=== PATIENT | male | born 1965 | race Two or more races ===

== ENCOUNTER 2021-06-15 15:35 | Emergency (ER) | payer MEDICAID, SELFPAY ==
--- NOTE | ~2021-06-15 | CT_ITS ---
EXAMINATION: CT ANGIOGRAM OF THE CHEST WITH CONTRAST (CT PULMONARY ANGIOGRAM FOR PE) CLINICAL INFORMATION: Elevated D-dimer. RIGHT side chest pain. Evaluate for pulmonary emphysema or pneumonia. COMPARISON: CXR from 06/15/2021. TECHNIQUE: Prior to contrast administration, noncontrast localization images were obtained. Subsequently, multidetector volumetric imaging was performed from the thoracic inlet to below the diaphragms following the administration of 65 mL Omnipaque 350 intravenous contrast. No contrast reaction reported. Sagittal, coronal, and MIP oblique sagittal reformatted images were obtained on the CT workstation, uploaded to PACS, and reviewed. This CT examination was performed using dose optimization techniques as appropriate, variously including the following: *Automated exposure control *Adjustment of mA and/or kV according to patient size (this includes techniques or standardized protocols for targeted exams where dose is matched to indication/reason for exam; i.e. extremities or head) *Use of iterative reconstruction technique DLP: Total exam dose-length product 312 mGy-cm FINDINGS: LUNGS AND PLEURA: Trachea and central airways are widely patent and normal in caliber. Patchy groundglass opacities are present in both lungs. The disease is peripheral in distribution and worst in the lower lobes. There are intermixed small airspace opacities, nodular/reticulonodular opacities, and perifissural nodular opacities in both lungs. The findings could represent either infectious or noninfectious pneumonitis, with differential including sequela of Covid 19 infection. Therefore, recommend correlation with results of Covid testing. There is mild dilatation of several bronchi in lower lobes and inferior lingula. No mucous plugging of bronchi. QUALITY OF STUDY/CONTRAST BOLUS: Satisfactory. CARDIOVASCULAR: The pulmonary arteries are normal in caliber. No embolic filling defects in the main, lobar or segmental vessels. The heart size is normal. No pericardial effusion. Thoracic aorta is normal in caliber. There is no aortic aneurysm or dissection. MEDIASTINUM/LOWER NECK: The esophagus and thyroid gland are unremarkable. No mediastinal mass. No pneumomediastinum. LYMPHATICS: No axillary or internal mammary lymphadenopathy. No pathologic sized mediastinal lymph nodes. Mildly enlarged hilar lymph nodes are detected. The right and left hilar lymph nodes measure up to approximately 1.2 cm and 1 cm short axis diameter. UPPER ABDOMEN: No contrast reflux into the inferior vena cava. No acute findings in the visualized portion of the upper abdomen. OSSEOUS STRUCTURES: Mild spondylosis of the thoracic spine. No suspicious bone lesions. CT/CT angio chest PE protocol IMPRESSION: * No evidence of pulmonary embolism. * There are groundglass and reticular/nodular opacities of both lungs. The abnormalities could be caused by an infectious or noninfectious inflammatory process. Since differential diagnosis includes viral pneumonia, recommend correlation with results of Covid testing. Mild bilateral hilar lymphadenopathy is present. * No pleural effusion or pneumothorax.
--- NOTE | ~2021-06-15 | XR_ITS ---
EXAMINATION: XR CHEST CLINICAL INFORMATION: Right-sided chest pain COMPARISON: None TECHNIQUE: Frontal view of the chest was obtained. FINDINGS: Diffuse coarse interstitial opacity. No focal consolidation, pleural effusion, or pneumothorax. Normal heart size. Regional skeleton intact. XR/XR chest 1V IMPRESSION: Diffuse coarse interstitial opacity is seen. No prior studies available to assess acuity. This can be seen acutely with bronchiolitis or interstitial pneumonitis, chronically with chronic bronchitis or reactive airways disease.
[2021-06-15 16:47] VITALS: BP 134/85; PULSE 72; RESP 18; TEMP 36.7; O2SAT 96; BMI 26.6
--- NOTE | 2021-06-15 17:16 | ED_ITS ---
HPI - General Adult General Chief complaint: General Medical Stated complaint: Chest wall pain X 1 wk Time Seen by Provider: 06/15/21 17:11 Source: patient Mode of arrival: ambulatory Limitations: no limitations History of Present Illness HPI narrative: 56-year-old male with history of arthritis presents to ED for r ight-sided chest pain for 5 days. Patient states every time he touches the area is painful. Patient denies any redness, swelling, mass on chest, or nipple discharge. Patient denies any URI symptoms. Patient denies any abdominal pain, lower extremity swelling, calf pain, coughing up blood, recent long travel, or recent surgery. Patient states he wakes up in the morning with a right-sided chest pain that is tender to touch. Patient states had similar symptom in October that resolved on its own. Patient denies any chest wall pain on movement of torso or extremities. Related Data Previous Rx's Medication Instructions Recorded azithromycin 250 mg tablet 250 mg PO DAILY 4 Days #4 tab 06/15/21 doxycycline hyclate 100 mg tablet 100 mg PO BID 7 Days #13 tab 06/15/21 Allergies Allergy/AdvReac Type Severity Reaction Status Date / Time No Known Allergies Allergy Verified 06/15/21 15:51 [No Known Allergies*] Review of Systems Review of Systems: Yes all other systems are reviewed and are negative Constitutional: Constitutional: Reports as per HPI and Reports no additional constitutional complaints Eyes: Eyes: Reports as per HPI and Reports no additional eye complaints ENT: Reports system reviewed and no additional complaints, except as documented and Reports as per HPI Cardiovascular: Cardiovascular: Reports as per HPI, Reports no additional cardiovascular complaints and Reports chest pain (Right-sided) Respiratory: Respiratory: Reports as per HPI and Reports no additional respiratory complaints Gastrointestinal: Gastrointestinal: Reports as per HPI and Reports no additional gastrointestinal complaints Musculoskeletal: Musculoskeletal: Reports no additional musculoskeletal complaints and Reports as per HPI Neurologic: Reports system reviewed and no additional complaints, except as documented and Reports as per HPI Psychiatric: Psychiatric: Reports no additional psychiatric complaints and Reports as per HPI [facility] Past Medical History Surgical History (Updated 06/15/21 @ 16:49 by Rosy Banuelos RN) H/O removal of testicle Social History Social History Advance Directives: No Advance Directives Information Provided: No Physical Exam Vital Signs: Vital Signs: Last Vital Signs Temp 98.0 F 06/15/21 21:58 Pulse 74 06/15/21 21:58 Resp 18 06/15/21 21:58 BP 124/88 06/15/21 21:58 Pulse Ox 98 06/15/21 21:58 Body Mass Index 26.6 Const: General: cooperative, healthy appearing, comfortable, no acute distress, well developed, alert, awake and Physically active HENMT: Head: Yes normal to inspection, Yes No palpable skull fracture present, Yes normocephalic, No atraumatic, No abrasion, No Acrocyanosis present, No Martinez's sign, No contusion, No cranial bruits, No hematoma, No laceration, No occipital foramen tenderness, No palpable skull fracture, No raccoon eyes, No scalp lesion, No scalp tenderness, No Temporal artery tenderness present and No periorbital ecchymosis Eyes: General: appearance normal, both eyes and all related structures Neck: Neck: Yes normal visual inspection, Yes full ROM, Yes no lymphadenopathy, Yes no meningeal signs, Yes trachea midline, Yes supple, No anterior neck swelling and No tender Chest: Chest palpation & inspection: normal inspection of the chest Chest/axillae images: 1. Positive for significant tenderness on palpation. Negative for erythema, fluctuant mass on palpation, crepitus, or deformity. Negative for pain of chest on movement of torso/upper extremities. Resp: Effort & Inspection: normal respiratory effort and able to speak in complete sentences Auscultation: clear to auscultation bilaterally Cardio: Jugular venous distension: no JVD Heart sounds: S1 normal heart sound present and S2 normal heart sound present GI: Inspection: Yes normal to inspection and No abdominal wall ecchymosis Palpation (GI): Soft to palpation, not firm, nontender, no guarding and not rigid : General: No CVA tenderness and Yes no CVA tenderness Back/Spine/Pelvis: Back: no CVA tenderness, No CVA tenderness and No back tenderness Skin: General skin exam: no rashes or lesions noted and elasticity normal Neuro: General: gait normal, no meningeal signs and CN's II-XI intact bilaterally Cranial nerves: Yes CN's II-XII intact bilaterally Extrem: General: Yes normal to inspection and Yes full ROM Psych: Appearance: grossly normal, well kempt and not disheveled Course Course Course Narrative: Likely muscular chest wall pain but due to patient stating chest pain for 5 days without any trauma or exertion will do EKG, labs, chest x- ray, and D-dimer. Reevaluation(s) Reevaluation #1: Chest x-ray shows pneumonia. Labs and COVID swab pending. Patient not in any distress. Patient is not hypoxic. EKG negative STEMI Reevaluation #2: Patient has elevated D-dimer due to this patient will be sent for chest CT to rule out PE. COVID swab pending. Troponin negative Reevaluation #3: COVID swab negative. Influenza and RSV also negative. Patient had white blood cell count [id number] but vital signs are normal. Negative for sirs criteria. Chest CT negative for PE but confirm pneumonia. Curb score 0. Patient will be discharged with oral antibiotics. Patient will receive first dose of azithromycin and doycycline in the ED. Time: 21:44 Medical Decision Making MDM Narrative Medical decision making narrative: Pneumonia Lab Data Result diagrams: 06/15/21 18:43 06/15/21 18:39 Labs: Lab Results 06/15/21 06/15/21 06/15/21 Range/Units 18:38 18:39 18:39 WBC (4.8-10.8) X10*3/uL RBC (4.60-5.80) X10*6/uL Hgb (14.0-18.0) g/dl Hct (42.0-52.0) % MCV (80.0-98.0) fL MCH (27.0-33.0) pg MCHC (31.0-36.0) g/dl RDW (11.0-16.0) % Plt Count (160-400) X10*3/uL MPV (9.4-12.4) fL Immature Gran % (Auto) (0.0-0.4) % Neut % (Auto) (45-73) % Lymph % (Auto) (20-40) % Osborne % (Auto) (2-11) % Eos % (Auto) (0-4) % Baso % (Auto) (0-2) % Lymph # (Auto) (1.2-4.9) X10*3/uL Osborne # (Auto) (0.1-1.2) X10*3/uL Eos # (Auto) (0.0-0.4) X10*3/uL Baso # (Auto) (0.0-0.2) X10*3/uL Abs Immat Gran (auto) (0.00-0.03) X10*3/uL Absolute Neuts (auto) (2.0-8.3) x10*3/uL Absolute Nucleated RBC (0.0-0.012) X10*3/uL Nucleated RBC % (auto) (0.0-0.2) /100WBC PT 11.8 (9.9-13.0) SEC INR 1.0 (0.9-1.1) APTT 35.1 (24.1-38.0) SEC D-Dimer High Sensitivty 427 NG/ML Sodium 139 (135-145) mmol/L Potassium 4.8 (3.3-5.1) mmol/L Chloride 105 (96-108) mmol/L Carbon Dioxide 25 (22-29) mmol/L Anion Gap 14 (12-20) BUN 20 H (9-16) mg/dL Creatinine 0.90 (0.5-1.4) mg/dL Estim Creat Clear Calc 109.0 Estimated GFR > 60 Random Glucose 89 (60-115) mg/dL Calcium 9.5 (8.4-10.2) mg/dL Total Bilirubin 0.5 (0.0-1.0) mg/dL AST 23 (5-37) U/L ALT 18 (0-40) U/L Alkaline Phosphatase 85 (39-117) U/L Troponin I High Sens (<3.5-35.0) ng/L B-Natriuretic Peptide (<100) pg/mL Total Protein 7.6 (6.5-8.0) g/dL Albumin 4.3 (3.5-5.0) g/dL Lipase 27 (8-78) U/L Influenza Type A (PCR) NEGATIVE (Negative) Influenza Type B (PCR) NEGATIVE (Negative) RSV RNA Qual (PCR) NEGATIVE (Negative) SARS-CoV-2 RNA (RT-PCR) NEGATIVE (Negative) 06/15/21 06/15/21 06/15/21 Range/Units 18:39 18:43 18:43 WBC 14.0 H (4.8-10.8) X10*3/uL RBC 5.01 (4.60-5.80) X10*6/uL Hgb 14.1 (14.0-18.0) g/dl Hct 43.0 (42.0-52.0) % MCV 85.8 (80.0-98.0) fL MCH 28.1 (27.0-33.0) pg MCHC 32.8 (31.0-36.0) g/dl RDW 12.8 (11.0-16.0) % Plt Count 325 (160-400) X10*3/uL MPV 10.0 (9.4-12.4) fL Immature Gran % (Auto) 0.8 H (0.0-0.4) % Neut % (Auto) 59.4 (45-73) % Lymph % (Auto) 23.6 (20-40) % Osborne % (Auto) 6.4 (2-11) % Eos % (Auto) 9.3 H (0-4) % Baso % (Auto) 0.5 (0-2) % Lymph # (Auto) 3.3 (1.2-4.9) X10*3/uL Osborne # (Auto) 0.9 (0.1-1.2) X10*3/uL Eos # (Auto) 1.3 H (0.0-0.4) X10*3/uL Baso # (Auto) 0.1 (0.0-0.2) X10*3/uL Abs Immat Gran (auto) 0.11 H (0.00-0.03) X10*3/uL Absolute Neuts (auto) 8.3 (2.0-8.3) x10*3/uL Absolute Nucleated RBC 0.000 (0.0-0.012) X10*3/uL Nucleated RBC % (auto) 0.0 (0.0-0.2) /100WBC PT (9.9-13.0) SEC INR (0.9-1.1) APTT (24.1-38.0) SEC D-Dimer High Sensitivty NG/ML Sodium (135-145) mmol/L Potassium (3.3-5.1) mmol/L Chloride (96-108) mmol/L Carbon Dioxide (22-29) mmol/L Anion Gap (12-20) BUN (9-16) mg/dL Creatinine (0.5-1.4) mg/dL Estim Creat Clear Calc Estimated GFR Random Glucose (60-115) mg/dL Calcium (8.4-10.2) mg/dL Total Bilirubin (0.0-1.0) mg/dL AST (5-37) U/L ALT (0-40) U/L Alkaline Phosphatase (39-117) U/L Troponin I High Sens 4.5 (<3.5-35.0) ng/L B-Natriuretic Peptide 21 (<100) pg/mL Total Protein (6.5-8.0) g/dL Albumin (3.5-5.0) g/dL Lipase (8-78) U/L Influenza Type A (PCR) (Negative) Influenza Type B (PCR) (Negative) RSV RNA Qual (PCR) (Negative) SARS-CoV-2 RNA (RT-PCR) (Negative) ECG Data Interpretation: Sinus rhythm with PVCs. Ventricular rate 69. Pr interval 190. QRS 94 pr QTC 439. Negative STEMI Discharge Plan Discharge Clinical Impression: Pneumonia Patient Disposition: Home, Self-Care Instructions: Community Acquired Pneumonia (ED) Additional Instructions: Your EKG and blood work came back negative for heart attack. CT scan of your chest came back negative for pulmonary embolus. Chest CT shows pneumonia. You will be given 1st dose of antibiotics in the ER. You need to cotton picker rest of your antibiotics at [facility] pharmacy. Return to the ED immediately for any chest pain, shortness of breath, coughing up blood, weakness, dizziness, or any other concerning symptoms. Please follow-up with primary care provider Prescriptions: New azithromycin 250 mg tablet 250 mg PO DAILY 4 Days Qty: 4 RF: 0 doxycycline hyclate 100 mg tablet 100 mg PO BID 7 Days Qty: 13 RF: 0 Stand Alone Forms: Work/School Release Interventions: ED Discharge Assessment Last Done: 06/15/21 22:00 Discharge Date/Time: 06/15/21 22:00 Print Language: Estonian
[2021-06-15 18:58] LABS: MANUAL DIFF FLAG NO
[2021-06-15 19:02] LABS: Basophils Absolute Auto 0.1 X10*3/uL (0.0-0.2); Basophils Percent Auto 0.5 % (0-2); Eosinophils Absolute Auto 1.3 X10*3/uL (0.0-0.4); Eosinophils Percent Auto 9.3 % (0-4); Hemoglobin 14.1 g/dl (14.0-18.0); Imm Gran Abs Auto 0.11 X10*3/uL (0.00-0.03); Imm Gran Pct Auto 0.8 % (0.0-0.4); Lymphocytes Absolute Auto 3.3 X10*3/uL (1.2-4.9); Lymphocytes Percent Auto 23.6 % (20-40); Mean Corpuscular HGB Conc 32.8 g/dl (31.0-36.0); Mean Corpuscular Hemoglobin 28.1 pg (27.0-33.0); Mean Corpuscular Volume 85.8 fL (80.0-98.0); Monocytes Absolute Auto 0.9 X10*3/uL (0.1-1.2); Monocytes Percent Auto 6.4 % (2-11); Neutrophils Absolute Auto 8.3 x10*3/uL (2.0-8.3); Neutrophils Percent Auto 59.4 % (45-73); Platelet Count 325 X10*3/uL (160-400); Red Blood Count 5.01 X10*6/uL (4.60-5.80); Red Cell Distribution Width 12.8 % (11.0-16.0)
[2021-06-15 19:07] LABS: Prothrombin Time 11.8 SEC (9.9-13.0)
[2021-06-15 19:09] LABS: D Dimer High Sensitivity 427 NG/ML; Partial Thromboplastin Time 35.1 SEC (24.1-38.0)
[2021-06-15 19:22] LABS: Troponin-I High Sensitivity 4.5 ng/L (<3.5-35.0)
[2021-06-15 19:22] LABS: B Type Natriuretic Peptide 21 pg/mL (<100)
[2021-06-15 19:26] LABS: Alanine Aminotransferase 18 U/L (0-40); Albumin Level 4.3 g/dL (3.5-5.0); Alkaline Phosphatase 85 U/L (39-117); Anion Gap 14 (12-20); Aspartate Amino Transferase 23 U/L (5-37); Bilirubin Total 0.5 mg/dL (0.0-1.0); Blood Urea Nitrogen 20 mg/dL (9-16); Calcium 9.5 mg/dL (8.4-10.2); Carbon Dioxide 25 mmol/L (22-29); Chloride 105 mmol/L (96-108); Estimated Glomerular Filt Rate > 60; Glucose Random 89 mg/dL (60-115); Lipase 27 U/L (8-78); Potassium 4.8 mmol/L (3.3-5.1); Sodium 139 mmol/L (135-145); Total Protein 7.6 g/dL (6.5-8.0)
[2021-06-15 19:37] LABS: Influenza A PCR NEGATIVE (Negative); Influenza B PCR NEGATIVE (Negative); Resp Syncy Virus RNA Qual PCR NEGATIVE (Negative); SARS COV2 PCR INHOUSE NEGATIVE (Negative)
[2021-06-15] MEDS: iohexoL 350 MG/ML 100 ML INFUS..BTL IV (19:56)
[2021-06-15 20:35] VITALS: BP 126/80; PULSE 78; RESP 18; TEMP 36.9; O2SAT 98
[2021-06-15] MEDS: Azithromycin 500 MG TABLET PO (21:42)
[2021-06-15 21:58] VITALS: BP 124/88; PULSE 74; RESP 18; TEMP 36.7; O2SAT 98
== END 2021-06-15 22:00 | disposition home or self-care (01) ==
PROVIDERS: Physician Assistant; Emergency Provider Emergency Medicine
DX: J18.9 Pneumonia, unspecified organism (principal); R07.89 Other chest pain; Z20.822 Contact with and (suspected) exposure to COVID-19; Z79.899 Other long term (current) drug therapy
CPT/HCPCS: 0241U; 36415; 71045; 71275; 80053; 83690; 83880; 84484; 85025; 85379; 85610; 85730; 99284; Q9967

== ENCOUNTER 2021-08-05 08:33 | Emergency (ER) | payer MEDICAID, SELFPAY ==
--- NOTE | ~2021-08-05 | XR_ITS ---
EXAMINATION: XR CHEST CLINICAL INFORMATION: Chest wall pain for months COMPARISON: June 15, 2021 TECHNIQUE: 2 views of the chest were obtained. FINDINGS: There are again noted to be regions of interstitial prominence bilaterally as well as some left base disease and left upper lobe subpleural density no pneumothorax is identified. Heart normal size. No evidence of pulmonary edema. XR/XR chest 2V IMPRESSION: No significant change compared to previous study of June 15, 2021 which scattered regions of disease and interstitial prominence.
[2021-08-05 08:34] VITALS: BP 126/84; PULSE 92; RESP 19; TEMP 36.1; O2SAT 100; BMI 27.4
--- NOTE | 2021-08-05 11:04 | ED_ITS ---
HPI - General Adult General Chief complaint: General Medical Stated complaint: R sided chest pain Time Seen by Provider: 08/05/21 11:04 Source: patient Mode of arrival: ambulatory Limitations: no limitations History of Present Illness HPI narrative: 56-year-old male who presents emergency department for evaluation of right-sided chest pain, dyspnea on exertion and inflammation in the joints of his hands and feet. The patient states that he 1st developed right-sided chest pain in October of 2020. He points to his right breast area when asked to localize the pain. He states the pain was a constant sharp pain which was worse an intermittent, sharp pain that he would get daily. Pain was worse a few depressed in his chest. He states the pain lasted 2 weeks and then resolved. He states the pain then came back in May of 2021. He was seen here in the emergency department and had a chest x-ray and laboratory evaluation. At that time his white blood count was elevated 14,000 he did have. His chemistries were unremarkable and his influenza, RSV and [id number] PCR was negative. He was treated with antibiotics and discharged home. He states however since then he has continued to have intermittent right-sided chest pain as described above, the pain seems to be worse at night. Patient also states that over the past 2 years he has had inflammation of his joints of his hands and feet with sometimes discoloration of his hands (reddish to purple discoloration). He states that his PCP in the past did give him meloxicam with improvement of his hand pain. He states he has been taking ibuprofen with no relief his chest pain. The patient has noted dyspnea on exertion after 2 flights of stairs otherwise has no shortness of breath at rest. He states he occasionally gets night sweats but these are very rare. He has had no change in his weight. He has not traveled outside the country knee does not have any exotic pets. He does not have a primary care doctor. He denied being ill recently, he denied fever, chills, rash, nausea, vomiting or diarrhea. Related Data Previous Rx's Medication Instructions Recorded azithromycin 250 mg tablet 250 mg PO DAILY 4 Days #4 tab 06/15/21 doxycycline hyclate 100 mg tablet 100 mg PO BID 7 Days #13 tab 06/15/21 meloxicam 15 mg tablet 15 mg PO DAILY #30 tab 08/05/21 Allergies Allergy/AdvReac Type Severity Reaction Status Date / Time No Known Allergies Allergy Verified 06/15/21 15:51 [No Known Allergies*] Review of Systems Review of Systems: Yes all other systems are reviewed and are negative COUNT INCLUDES THE [facility] Past Medical History COUNT INCLUDES THE [facility] Narrative: Past medical history: Please see below, Raynaud's disease. Past surgical history: The patient states that he has left testicle removed for pain he states that this was not a malignancy. He has also had a vasectomy. Social history: He denies tobacco, alcohol and drug use. Family history: The patient's sister is 53 years old and she has osteoarthritis. Medical History (Updated 08/05/21 @ 11:48 by Josep Chairez MD) Raynaud disease Surgical History H/O removal of testicle Social History Social History Advance Directives: No Advance Directives Information Provided: No Physical Exam Vital Signs: Vital Signs: Last Vital Signs Temp 97 F 08/05/21 08:34 Pulse 92 08/05/21 08:34 Resp 19 08/05/21 08:34 BP 126/84 08/05/21 08:34 Pulse Ox 100 08/05/21 08:34 BMI result Body Mass Index 27.4 Const: General: cooperative and no acute distress Orientation/consciousness: oriented to person and oriented to place Limi tations: no limitations HENMT: Head: Yes normal to inspection, Yes normocephalic and Yes atraumatic Ears: external ears normal General nose exam: Normal external nose present Face and sinus: Yes normal facial exam Mouth: Normal oral and palatal mucosa present Throat: Yes posterior oropharynx normal Eyes: General: appearance normal, both eyes and all related structures Pupils: Equal, round and reactive pupils present Neck: Neck: Yes normal visual inspection, Yes no lymphadenopathy, Yes trachea midline and Yes supple Chest: Chest palpation & inspection: normal inspection of the chest and normal palpation of entire chest wall Resp: Effort & Inspection: normal respiratory effort and able to speak in complete sentences Auscultation: clear to auscultation bilaterally Cardio: Rate: regular rate Rhythm: regular rhythm Heart sounds: S1 normal heart sound present, S2 normal heart sound present and no murmurs GI: Inspection: Yes normal to inspection Palpation (GI): Soft to palpation, nontender and no guarding Auscultation: normal bowel sounds : General: Yes no CVA tenderness Back/Spine/Pelvis: Back: no CVA tenderness Skin: General skin exam: no rashes or lesions noted Neuro: General: oriented to person and oriented to place Cranial nerves: Yes CN's II-XII intact bilaterally and Yes Equal, round and reactive pupils present Cognition (Neuro): normal cognition Motor exam (neuro): 5/5 motor strength present throughout Extrem: General: Yes normal to inspection Psych: Appearance: grossly normal Speech and movement: Normal speech and movement present Affect: normal affect Attitude: cooperative Thought process: Normal thought process present Thought content: Normal thought content present Course Course Course Narrative: 56-year-old male who presents emergency department for evaluation of right-sided chest pain and dyspnea on exertion (after 2 flights of stairs) since May 2021 and bilateral hand and joint pain for approximately 2 years. In the chart the patient has a diagnosis of Raynaud's disease however he is not certain what type of workup be had for this condition. The patient's vital signs were normal with an O2 saturation of 100% on room air. Patient's exam was otherwise unremarkable with no significant joint abnormalities noted at this time. Chest x-ray today from 06/15/2021. He also had a CT/CT angio chest pulmonary embolism protocol on that same day which revealed ground-glass and reticular nodule opacities of both lungs. At this time the patient has no evidence for an infectious disease and I suspect that the patient may have an autoimmune disease affecting his joints and lungs. I did discuss this with him. The patient will be started back on his meloxicam 15 mg once a day see if this helps with his joint pain and his chest pain. The patient will need to follow- up with a scraper meat and christmas tree grader. He does not have a PCP. I did give him the name and number for scraper meat and christmas tree grader the area and asked him to contact providers to see if he can make a follow-up appointment in 2-3 weeks. Patient was discharged home with printed and verbal instructions. Discharge Plan Discharge Clinical Impression: Inflammatory arthritis, Acute costochondritis, Interstitial lung disease Patient Disposition: Home, Self-Care Additional Instructions: Your presentation is concerning for possible autoimmune disease causing inflammation in the joint (arthritis) of your hands, feet and inflammation in your lungs (interstitial disease). Your chest x-ray today is abnormal and suggests that you may have been inflammatory process of your lungs (interstitial disease) and this may be causing your shortness of breath when you walk up stairs and your right-sided chest pain. Take meloxicam 15 mg once a day. You can take this as needed however if you continue to have pain , you can take it daily. While taking meloxicam do not take any other anti-inflammatory medications such as ibuprofen, Motrin, Advil, Aleve, naproxen. You can also Tylenol (acetaminophen) 500 mg pills, 2 pills every 4 to 6 hours as needed for pain. I want you to follow-up with a scraper meat (lung specialist), Dr. Francis. Call his office at and try to make a follow-up appointment within the next 2-3 weeks. I also want you to follow-up with a christmas tree grader (joint specialist),Dr. Siegel. Call her office at and try to make a follow-up appointment with the next 2-3 weeks. It is sometimes very hard to get in to see 1 of the specialists but call their offices as soon as possible to and take the next available appointment. Please see below, these are the radiology readings of your x-ray from today and your CT scan from 06/15/2021. These readings are not significantly different but they are concerning for possible inflammatory process of your chest. I do not think that you have an infection causing these changes in your lung and you do not need antibiotics at this time. Please bring this paper with you when you see the specialist so they can review these readings. Two view chest x-ray on 08/05/2021 FINDINGS: There are again noted to be regions of interstitial prominence bilaterally as well as some left base disease and left upper lobe subpleural density no pneumothorax is identified. Heart normal size. No evidence of pulmonary edema. CT/CT angio chest PE protocol 06/15/2021 IMPRESSION: *? No evidence of pulmonary embolism. *? There are groundglass and reticular/nodular opacities of both lungs. The abnormalities could be caused by an infectious or noninfectious inflammatory process. Since differential diagnosis includes viral pneumonia, recommend correlation with results of Covid testing. Mild bilateral hilar lymphadenopathy is present. *? No pleural effusion or pneumothorax. XR/XR chest 2V IMPRESSION: No significant change compared to previous study of June 15, 2021 which scattered regions of disease and interstitial prominence. Prescriptions: New meloxicam 15 mg tablet 15 mg PO DAILY Qty: 30 RF: 0 No Action azithromycin 250 mg tablet 250 mg PO DAILY 4 Days Qty: 4 RF: 0 doxycycline hyclate 100 mg tablet 100 mg PO BID 7 Days Qty: 13 RF: 0
== END 2021-08-05 11:55 | disposition home or self-care (01) ==
PROVIDERS: Emergency Provider Emergency Medicine Emergency Medical Services
DX: R07.89 Other chest pain (principal); R06.02 Shortness of breath; Z79.899 Other long term (current) drug therapy
CPT/HCPCS: 71046; 99283

== ENCOUNTER 2021-11-03 15:05 | Emergency (ER) | payer MEDICAID, SELFPAY ==
[2021-11-03 15:29] VITALS: BP 131/86; PULSE 70; RESP 18; TEMP 36.9; O2SAT 98; BMI 26.6
--- NOTE | 2021-11-03 15:54 | ED_ITS ---
HPI - General Adult General Chief complaint: General Medical Stated complaint: pain in his hands and feet Time Seen by Provider: 11/03/21 15:51 Source: patient Mode of arrival: ambulatory Limitations: no limitations History of Present Illness HPI narrative: 56 y/o male presents to the ER with acute on chronic bilateral hand and foot pain. He has had this pain for over 2 years, seen here for the same in [facility] and discharged with trial of meloxicam and referral to a Financial Sales Representative. He states in 2018 he was seen at [facility] and diagnosed with Raynaud's disease. He reports his fingers frequently turn different colors including red, white, purple. It is worse in the cold and when he is under stress. He has been taking Motrin every day with minimal relief. He reports stiff joints in the morning. He denies any known injury. He was unable to follow-up with a primary care doctor because he no longer takes his insurance and he never call the coremaker apprentice. MD complaint: chronic bilateral hand pain Onset (ago): year(s) Location: left and right Radiation: distal Severity: moderate Severity scale (1-10): 7 Quality: burning and aching Pain Consistency: constant Relieving factors: medication Exacerbating factors: other (Morning, movement) Associated symptoms: denies other symptoms Treatments prior to arrival: NSAID Related Data Previous Rx's Medication Instructions Recorded azithromycin 250 mg tablet 250 mg PO DAILY 4 Days #4 tab 06/15/21 doxycycline hyclate 100 mg tablet 100 mg PO BID 7 Days #13 tab 06/15/21 meloxicam 15 mg tablet 15 mg PO DAILY #30 tab 08/05/21 acetaminophen 650 mg 650 mg PO Q8H #30 tab 11/03/21 tablet,extended release (Tylenol Arthritis Pain) meloxicam 15 mg tablet 15 mg PO DAILY #14 tab 11/03/21 Allergies Allergy/AdvReac Type Severity Reaction Status Date / Time No Known Allergies Allergy Verified 06/15/21 15:51 [No Known Allergies*] Review of Systems Review of Systems: Constitutional: No Fever, No Chills Cardiovascular: No Chest Pain, No SOB Gastrointestinal: No Nausea, No Vomiting Musculoskeletal: + joint pain, No Myalgias Skin: No Skin Lesions, No rash Neuro: No Weakness, No Numbness Psych: No Anxiety/Panic, No Depression Heme/Lymph: No Bruising, No Lymphadenopathy PMFSH Past Medical History Medical History (Updated 11/03/21 @ 16:10 by RANDA Steve) Raynaud disease Surgical History H/O removal of testicle Social History Social History Advance Directives: No Advance Directives Information Provided: No Physical Exam ED Vital Signs: Vital Signs - 24 hr 11/03/21 15:29 Temperature 98.5 F Pulse Rate 70 Respiratory Rate 18 Blood Pressure 131/86 Pulse Oximetry 98 BMI result Body Mass Index 26.6 Appearance: Alert. Oriented X3. No acute distress. HEENT: normal inspection CVS: Normal heart rate and rhythm. Pulses normal. Respiratory: No respiratory distress. Skin: Skin warm and dry. Normal skin color. Normal skin turgor. No rashes. Extremities: Mild general erythema of the palmar aspect of bilateral hands and digits. Normal range of motion with pain upon full flexion of fingers. 2+ radial pulses and cap refill <3 sec. hands are warm with diffuse tenderness of the DIP/PIP joints on both hands. Neuro: Oriented X 3. No motor deficit. No sensory deficit. Course Course Course Narrative: 56-year-old male presents to the ER with acute on chronic bilateral hand pain. He was previously diagnosed with Raynaud's phenomenon out in [place] several years ago. He has not been on treatment and his lifestyle modifications I have not made much difference. He was seen here for the same a few months ago, discharged with a trial of meloxicam with moderate improvement. Unfortunately initiation of a calcium channel luis or any other disease specific medications require frequent follow-up and dose adjustments. Unsafe to do so from the emergency department, this was explained at length with the patient and the importance of following up with the primary care doctor and coremaker apprentice.. Patient expressed understanding. He is stable for discharge home with trial of meloxicam and extra-strength Tylenol for arthritis. Critical Care Time Critical Care Time Critical Care Time: No Discharge Plan Discharge Clinical Impression: Chronic hand pain Patient Disposition: Home, Self-Care Instructions: Raynaud Disease (ED), Arthralgia (ED) Additional Instructions: Take the prescribed medications as needed for pain. Do your best to avoid stress, keep her hands warm at all times when you have increased pain soak them in a warm bath. It is important that you do your best to established primary care physician who can treat and monitor your chronic illness. Recommend following up with Rheumatology, number provided on discharge paperwork for follow-up with a joint specialist. If you develop new or worsening symptoms call 911 or come back to the ER for further evaluation. Prescriptions: New meloxicam 15 mg tablet 15 mg PO DAILY Qty: 14 0RF acetaminophen [Tylenol Arthritis Pain] 650 mg tablet extended release 650 mg PO Q8H Qty: 30 0RF No Action azithromycin 250 mg tablet 250 mg PO DAILY 4 Days Qty: 4 0RF Rx Instructions: start on day 2 of therapy doxycycline hyclate 100 mg tablet 100 mg PO BID 7 Days Qty: 13 0RF Rx Instructions: Patient received 1st dose of antibiotic in the ER. meloxicam 15 mg tablet 15 mg PO DAILY Qty: 30 0RF Interventions: ED Discharge Assessment Last Done: 11/03/21 16:27 Discharge Date/Time: 11/03/21 16:28
== END 2021-11-03 16:28 | disposition home or self-care (01) ==
PROVIDERS: Emergency Provider Emergency Medicine
DX: M79.641 Pain in right hand (principal); M79.642 Pain in left hand; M79.672 Pain in left foot; M79.671 Pain in right foot; Z79.899 Other long term (current) drug therapy
CPT/HCPCS: 99283

== ENCOUNTER 2022-03-29 20:00 | Emergency (ER) | payer MEDICAID, SELFPAY ==
[2022-03-29 22:00] VITALS: BP 142/94; PULSE 66; RESP 18; TEMP 36.4; O2SAT 97; BMI 25.7
[2022-03-30 00:24] VITALS: BP 146/92; PULSE 63; RESP 18; O2SAT 98
[2022-03-30 00:36] LABS: Hematocrit 42.2 % (42.0-52.0); Hemoglobin 14.1 g/dl (14.0-18.0); Mean Corpuscular HGB Conc 33.4 g/dl (31.0-36.0); Mean Corpuscular Hemoglobin 28.5 pg (27.0-33.0); Mean Corpuscular Volume 85.4 fL (80.0-98.0); Mean Platelet Volume 10.6 fL (9.4-12.4); Platelet Count 338 X10*3/uL (160-400); Red Blood Count 4.94 X10*6/uL (4.60-5.80); Red Cell Distribution Width 13.1 % (11.0-16.0); White Blood Count 11.9 X10*3/uL (4.8-10.8)
[2022-03-30 00:37] LABS: Appearance Urine Clear; Color Urine Yellow; Glucose Urine UA Negative (Negative); Leukocyte Esterase Urine Negative (Negative); Nitrite Urine Negative (Negative); Specific Gravity - Urine >= 1.030 (1.005-1.025); Urine Blood Negative (Negative); Urine Ketones Trace mg/dL (Negative); Urine Protein Trace mg/dL (Neg-Trace)
[2022-03-30 00:50] LABS: Bacteria Urine None Seen (None Seen); Hyaline Casts Urine 0-2 /LPF (0-2); RBC Urine 0-2 /HPF (0-2); Squamous Epithelial Cell Urine 0-2 /HPF (0-2); WBC Urine 0-5 /HPF (0-5)
[2022-03-30 00:57] LABS: Alanine Aminotransferase 23 U/L (0-40); Albumin Level 3.9 g/dL (3.5-5.0); Alkaline Phosphatase 85 U/L (39-117); Anion Gap 10 (12-20); Aspartate Amino Transferase 30 U/L (5-37); Bilirubin Direct 0.2 mg/dL (0.0-0.5); Bilirubin Total 0.4 mg/dL (0.0-1.0); Blood Urea Nitrogen 21 mg/dL (9-16); Carbon Dioxide 30 mmol/L (22-29); Chloride 104 mmol/L (96-108); Estimated Glomerular Filt Rate > 60; Glucose Random 95 mg/dL (60-115); Lipase 29 U/L (8-78); Potassium 4.1 mmol/L (3.3-5.1); Sodium 140 mmol/L (135-145)
--- NOTE | 2022-03-30 01:37 | ED_ITS ---
HPI - Back Pain/Injury General Chief Complaint: Back Pain/Injury Stated Complaint: left sided back pain Time Seen by Provider: 03/30/22 01:33 Source: patient Mode of arrival: ambulatory Limitations: no limitations History of Present Illness HPI Narrative: This is a 57-year-old male who is healthy who presents with left-sided back pain noted earlier today. Patient took some Tylenol with improvement in pain. No k nown injury or trauma. No radiation of the back pain. No reports of numbness or tingling in the lower extremities. No weakness in lower extremities. No bowel or bladder incontinence. No fevers or chills. No saddle anesthesia. Patient denies any associated urinary symptoms or vomiting or diarrhea. Related Data Previous Rx's Medication Instructions Recorded azithromycin 250 mg tablet 250 mg PO DAILY 4 days #4 tabs 06/15/21 doxycycline hyclate 100 mg tablet 100 mg PO BID 7 days #13 tabs 06/15/21 meloxicam 15 mg tablet 15 mg PO DAILY #30 tabs 08/05/21 acetaminophen 650 mg 650 mg PO Q8H #30 tabs 11/03/21 tablet,extended release (Tylenol Arthritis Pain) meloxicam 15 mg tablet 15 mg PO DAILY #14 tabs 11/03/21 cyclobenzaprine 10 mg tablet 10 mg PO TID PRN muscle spasm #14 03/30/22 tabs naproxen 500 mg tablet 500 mg PO BID PRN pain #30 tabs 03/30/22 Allergies Allergy/AdvReac Type Severity Reaction Status Date / Time No Known Allergies Allergy Verified 06/15/21 15:51 [No Known Allergies*] Review of Systems Review of Systems: Yes all other systems are reviewed and are negative Constitutional: Constitutional: Reports no additional constitutional complaints, Denies body ache(s), Denies chills, Denies fever(s), Denies headache(s) and Denies weakness Eyes: Eyes: Reports no additional eye complaints and Denies change in vision ENT: Reports system reviewed and no additional complaints, except as documented, Denies dizziness, Denies headache(s), Denies nasal congestion, Denies nasal discharge and Denies neck pain Cardiovascular: Cardiovascular: Reports no additional cardiovascular compla ints, Denies chest pain, Denies leg edema and Denies dyspnea Respiratory: Respiratory: Reports no additional respiratory complaints, Denies cough and Denies dyspnea Gastrointestinal: Gastrointestinal: Reports no additional gastrointestinal complaints, Denies abdominal pain, Denies diarrhea, Denies nausea and Denies vomiting Genitourinary: Genitourinary: Denies urinary incontinence Musculoskeletal: Musculoskeletal: Reports no additional musculoskeletal complaints, Reports back pain, Denies arthralgias, Denies joint swelling, Denies neck pain, Denies numbness and Denies tingling Integumentary/Breasts: Skin/Breast: Reports system reviewed and no additional complaints, except as docu and Denies rash Neurologic: Reports system reviewed and no additional complaints, except as documented, Denies Abnormal speech present, Denies dizziness, Denies headache(s), Denies numbness, Denies tingling and Denies weakness PMFSH Past Medical History Attestation statement: The following information was validated with the patient. Source: old records reviewed and nursing notes reviewed Medical History Raynaud disease Surgical History H/O removal of testicle Social History Social History Advance Directives: No Physical Exam Vital Signs: Vital Signs: Last Vital Signs Temp 97.6 F 03/29/22 22:00 Pulse 63 03/30/22 00:24 Resp 18 03/30/22 00:24 BP 146/92 H 03/30/22 00:24 Pulse Ox 98 03/30/22 00:24 O2 Del Method 03/30/22 00:24 BMI result Body Mass Index 25.7 Const: General: cooperative, healthy appearing, comfortable and no acute distress Orientation/consciousness: patient oriented x3 Limitations: no limitations HEENT: Head: Yes normal to inspection Ears: hearing grossly normal bila terally General nose exam: Normal external nose present Face and sinus: Yes normal facial exam Mouth: Normal oral and palatal mucosa present Throat: Yes posterior oropharynx normal Eyes: General: appearance normal, both eyes and all related structures Pupils: Equal, round and reactive pupils present Neck: Neck: Yes normal visual inspection Chest: Chest palpation & inspection: normal inspection of the chest Resp: Effort & Inspection: normal respiratory effort Auscultation: clear to auscultation bilaterally Cardio: Rate: regular rate Rhythm: regular rhythm Peripheral pulses: Peripheral pulses 2+ throughout GI: Inspection: Yes normal to inspection Palpation (GI): Soft to palpation and nontender Auscultation: normal bowel sounds Back/Spine/Pelvis: Other: No CVA tenderness. No midline tenderness over the lumbar or thoracic spine. No step-offs or deformities. Tenderness over the left lumbar soft tissue with palpable muscle spasm. Thoracic/Lumbar Spine: thoracic and lumbar spine normal to inspection Skin: General skin exam: no rashes or lesions noted Neuro: General: patient oriented x3, no focal motor deficits and normal sensation to monofilament Cranial nerves: Yes Equal, round and reactive pupils present Cognition (Neuro): normal cognition Speech: No Abnormal speech present Gait exam (Neuro): Normal gait present Motor exam (neuro): 5/5 motor strength present throughout Sensory Exam: Normal double simultaneous stimulation for sensation Extrem: General: Yes normal to inspection MDM - Back Pain/Injury MDM Narrative Medical decision making narrative: 57-year-old male here with atraumatic left-sided lower back pain. No CVA tenderness on exam. No abdominal pain. Vitals are stable. Patient had labs and urine testing from triage. Labs unremarkable. UA is negative for any signs of infection or hematuria. Low concern for renal colic. Likely musculoskeletal. Patient has had improvement with Tylenol. Will give IM Toradol. Reassessed pain If better sent home with Flexeril, NSAID Medical Records Attestation: I reviewed the patient's medical records. Lab Data Attestation: I reviewed the patient's lab results. Result diagrams: 03/30/22 00:28 03/30/22 00:28 Labs: Lab Results 03/30/22 03/30/22 03/30/22 Range/Units 00:28 00:28 00:28 WBC 11.9 H (4.8-10.8) X10*3/uL RBC 4.94 (4.60-5.80) X10*6/uL Hgb 14.1 (14.0-18.0) g/dl Hct 42.2 (42.0-52.0) % MCV 85.4 (80.0-98.0) fL MCH 28.5 (27.0-33.0) pg MCHC 33.4 (31.0-36.0) g/dl RDW 13.1 (11.0-16.0) % Plt Count 338 (160-400) X10*3/uL MPV 10.6 (9.4-12.4) fL Absolute Nucleated RBC 0.000 (0.0-0.012) X10*3/uL Nucleated RBC % (auto) 0.0 (0.0-0.2) /100WBC Sodium 140 (135-145) mmol/L Potassium 4.1 (3.3-5.1) mmol/L Chloride 104 (96-108) mmol/L Carbon Dioxide 30 H (22-29) mmol/L Anion Gap 10 L (12-20) BUN 21 H (9-16) mg/dL Creatinine 0.97 (0.5-1.4) mg/dL Estim Creat Clear Calc 100.0 Estimated GFR > 60 Random Glucose 95 (60-115) mg/dL Calcium 9.0 (8.4-10.2) mg/dL Total Bilirubin 0.4 (0.0-1.0) mg/dL Direct Bilirubin 0.2 (0.0-0.5) mg/dL AST 30 (5-37) U/L ALT 23 (0-40) U/L Alkaline Phosphatase 85 (39-117) U/L Total Protein 7.0 (6.5-8.0) g/dL Albumin 3.9 (3.5-5.0) g/dL Lipase 29 (8-78) U/L Urine Color Yellow Urine Appearance Clear Urine pH 6.0 (5.0-9.0) Ur Specific [place] >= 1.030 H (1.005-1.025) Urine Protein Trace (Neg-Trace) mg/dL Urine Glucose (UA) Negative (Negative) mg/dL Urine Ketones Trace (Negative) mg/dL Urine Blood Negative (Negative) Urine Nitrite Negative (Negative) Ur Leukocyte Esterase Negative (Negative) Urine RBC 0-2 (0-2) /HPF Urine WBC 0-5 (0-5) /HPF Ur Squamous Epith Cells 0-2 (0-2) /HPF Urine Bacteria None Seen (None Seen) Hyaline Casts 0-2 (0-2) /LPF Discharge Plan Discharge Clinical Impression: Strain of lumbar region Patient Disposition: Home, Self-Care Instructions: Back Pain (ED) Additional Instructions: Heat or ice Gentle stretching No heavy lifting or bending Lab work and urine testing or reassuring Prescriptions: New naproxen 500 mg tablet 500 mg PO BID PRN (Reason: pain) Qty: 30 0RF cyclobenzaprine 10 mg tablet 10 mg PO TID PRN (Reason: muscle spasm) Qty: 14 0RF No Action azithromycin 250 mg tablet 250 mg PO DAILY 4 Days Qty: 4 0RF Rx Instructions: start on day 2 of therapy doxycycline hyclate 100 mg tablet 100 mg PO BID 7 Days Qty: 13 0RF Rx Instructions: Patient received 1st dose of antibiotic in the ER. meloxicam 15 mg tablet 15 mg PO DAILY Qty: 30 0RF meloxicam 15 mg tablet 15 mg PO DAILY Qty: 14 0RF acetaminophen [Tylenol Arthritis Pain] 650 mg tablet extended release 650 mg PO Q8H Qty: 30 0RF Referrals: Physician,None [Primary Care Provider] - Stand Alone Forms: Work/School Release
[2022-03-30] MEDS: Ketorolac Tromethamine 60 MG/2 ML VIAL IM (01:53)
== END 2022-03-30 02:02 | disposition home or self-care (01) ==
PROVIDERS: Emergency Provider Internal Medicine
DX: S39.012A Strain of muscle, fascia and tendon of lower back, initial encounter (principal); X58.XXXA Exposure to other specified factors, initial encounter; Y93.9 Activity, unspecified; Y92.9 Unspecified place or not applicable; Y99.9 Unspecified external cause status
CPT/HCPCS: 36415; 80053; 81001; 82248; 83690; 85027; 96372; 99283; 99284; J1885

== ENCOUNTER 2024-07-17 11:31 | Outpatient (AMB) | payer BC, SELFPAY ==
--- OUTSIDE RECORDS SUMMARY | 2024-07-17 11:44 | XMS_ITS ---
Author Organization [facility] Address [address] [place] [address] Care Team Providers Care Technologist Infectious Disease Name Role Phone PHILIPP BARROW Unavailable [phone] ALLERGIES No Known Allergies REASON FOR VISIT Pt seen in office for CPE with lab. MEDICATIONS Medication SIG (Take, Route, Frequency, Duration) Notes Start Date End Date Status Mycophenolate Mofetil 500 MG Oral for 30 Active Eliquis 5 MG 1 tablet Orally Twic e a day for 30 days Not-Taking Azithromycin 1 GM as directed Orally Not-Taking sulfaSALAzine 500 MG 1 tablet Orally Onc e a day Active SOCIAL HISTORY Tobacco Use: Social History Observation Description Date Details (start date - stop date) Never Smoker NA - NA Sex Assigned At : Social History Observation Description Sex Assigned At Unknown Tobacco Use/Smoking Question Answer Notes Are you a nonsmoker VITAL SIGNS Heart Rate 77 /min 12/08/2023 Blood pressure systolic 132 mm Hg 12/08/19 24 Blood pressure diastolic 80 mm Hg 024 Weight 205 lbs 12/08/2023 BMI 27.04 kg/m2 12/08/2023 Height 73 in 12/08/2023 Oximetry 97 % 12/08/2023 Encounters Encounter Location Date Provider Diagnosis [facility] [address] [address] 12/08/2023 PHILIPP BARROW Essential (primary) hypertension I10 ; Annual physical exam Z00.00 ; 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 ; Immunosuppressed status D84.9 ; Raynaud's disease without gangrene I73.00 ; Pre-diabetes R73.03 and History of venous thromboembolism Z86.718 ASSESSMENTS Encounter Date Diagnosis Assessment Notes Treatment Notes Treatment Clinical Notes Section Notes 12/08/2023 Essential (primary) hypertension (ICD-10 - I10) Acute Concerns/Problem List: 12/08/2023 Chronic conditions are stable as per HPI Breathing status is stable Will see him back in 4 to 6 months for routine follow-up visit Labs reviewed today, Improving glycemic index Reviewed with patient the importance of medication and treatment plan compliance with BP goal of less then 140/90 per JNC 8 guidelines based on patient's age. This will ensure optimal health outcomes and prevent target organ damage. Made aware that uncontrolled hypertension may be silent and result in a stroke, heart attack, renal failure or even . Discussed the rationale for individualized medication regimen and the effects of their BP. Instructed to seek emergent care if the patient develops a headache, blurry vision, dizziness, chest pain or pressure. Of note, some information is being carried forward from prior records for informational purposes only and is being cited so that efficiency, safety and quality of the patient's care is not compromised This note was prepared using voice recognition software and direct typing Please excuse inadvertent type soldering machine tender or typing errors, or uncorrected word substitutions Although every attempt has been made by the provider to proofread this document, occasional misspellings and typographical errors may still be present Due to the previous pandemic, and the use of personal protective equipment (PPE) This may decrease voice recognition accuracy Inadvertent type soldering machine tender errors may occur 12/08/2023 Annual physical exam (ICD-10 - Z00.00) Acute Concerns/Problem List: 12/08/2023 Chronic conditions are stable as per HPI Breathing status is stable Will see him back in 4 to 6 months for routine follow-up visit Labs reviewed today, Improving glycemic index Reviewed with patient the importance of medication and treatment plan compliance with BP goal of less then 140/90 per JNC 8 guidelines based on patient's age. This will ensure optimal health outcomes and prevent target organ damage. Made aware that uncontrolled hypertension may be silent and result in a stroke, heart attack, renal failure or even . Discussed the rationale for individualized medication regimen and the effects of their BP. Instructed to seek emergent care if the patient develops a headache, blurry vision, dizziness, chest pain or pressure. Of note, some information is being carried forward from prior records for informational purposes only and is being cited so that efficiency, safety and quality of the patient's care is not compromised This note was prepared using voice recognition software and direct typing Please excuse inadvertent type soldering machine tender or typing errors, or uncorrected word substitutions Although every attempt has been made by the provider to proofread this document, occasional misspellings and typographical errors may still be present Due to the previous pandemic, and the use of personal protective equipment (PPE) This may decrease voice recognition accuracy Inadvertent type soldering machine tender errors may occur 12/08/2023 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 This will ensure optimal health outcomes and prevent target organ damage. Made aware that uncontrolled hypertension may be silent and result in a stroke, heart attack, renal failure or even . Discussed the rationale for individualized medication regimen and the effects of their BP. Instructed to seek emergent care if the patient develops a headache, blurry vision, dizziness, chest pain or pressure. Of note, some information is being carried forward from prior records for informational purposes only and is being cited so that efficiency, safety and quality of the patient's care is not compromised This note was prepared using voice recognition software and direct typing Please excuse inadvertent type soldering machine tender or typing errors, or uncorrected word substitutions Although every attempt has been made by the provider to proofread this document, occasional misspellings and typographical errors may still be present Due to the previous pandemic, and the use of personal protective equipment (PPE) This may decrease voice recognition accuracy Inadvertent type soldering machine tender errors may occur 12/08/2023 Immunosuppressed status (ICD-10 - D84.9) Acute Concerns/Problem List: 12/08/2023 Chronic conditions are stable as per HPI Breathing status is stable Will see him back in 4 to 6 months for routine follow-up visit Labs reviewed today, Improving glycemic index Reviewed with patient the importance of medication and treatment plan compliance with BP goal of less then 140/90 per JNC 8 guidelines based on patient's age. This will ensure optimal health outcomes and prevent target organ damage. Made aware that uncontrolled hypertension may be silent and result in a stroke, heart attack, renal failure or even . Discussed the rationale for individualized medication regimen and the effects of their BP. Instructed to seek emergent care if the patient develops a headache, blurry vision, dizziness, chest pain or pressure. Of note, some information is being carried forward from prior records for informational purposes only and is being cited so that efficiency, safety and quality of the patient's care is not compromised This note was prepared using voice recognition software and direct typing Please excuse inadvertent type soldering machine tender or typing errors, or uncorrected word substitutions Although every attempt has been made by the provider to proofread this document, occasional misspellings and typographical errors may still be present Due to the previous pandemic, and the use of personal protective equipment (PPE) This may decrease voice recognition accuracy Inadvertent type soldering machine tender errors may occur 12/08/2023 Raynaud's disease without gangrene (ICD-10 - I73.00) Acute Concerns/Problem List: 12/08/2023 Chronic conditions are stable as per HPI Breathing status is stable Will see him back in 4 to 6 months for routine follow-up visit Labs reviewed today, Improving glycemic index Reviewed with patient the importance of medication and treatment plan compliance with BP goal of less then 140/90 per JNC 8 guidelines based on patient's age. This will ensure optimal health outcomes and prevent target organ damage. Made aware that uncontrolled hypertension may be silent and result in a stroke, heart attack, renal failure or even . Discussed the rationale for individualized medication regimen and the effects of their BP. Instructed to seek emergent care if the patient develops a headache, blurry vision, dizziness, chest pain or pressure. Of note, some information is being carried forward from prior records for informational purposes only and is being cited so that efficiency, safety and quality of the patient's care is not compromised This note was prepared using voice recognition software and direct typing Please excuse inadvertent type soldering machine tender or typing errors, or uncorrected word substitutions Although every attempt has been made by the provider to proofread this document, occasional misspellings and typographical errors may still be present Due to the previous pandemic, and the use of personal protective equipment (PPE) This may decrease voice recognition accuracy Inadvertent type soldering machine tender errors may occur 12/08/2023 Pre-diabetes (ICD-10 - R73.03) Acute Concerns/Problem List: 12/08/2023 Chronic conditions are stable as per HPI Breathing status is stable Will see him back in 4 to 6 months for routine follow-up visit Labs reviewed today, Improving glycemic index Reviewed with patient the importance of medication and treatment plan compliance with BP goal of less then 140/90 per JNC 8 guidelines based on patient's age. This will ensure optimal health outcomes and prevent target organ damage. Made aware that uncontrolled hypertension may be silent and result in a stroke, heart attack, renal failure or even . Discussed the rationale for individualized medication regimen and the effects of their BP. Instructed to seek emergent care if the patient develops a headache, blurry vision, dizziness, chest pain or pressure. Of note, some information is being carried forward from prior records for informational purposes only and is being cited so that efficiency, safety and quality of the patient's care is not compromised This note was prepared using voice recognition software and direct typing Please excuse inadvertent type soldering machine tender or typing errors, or uncorrected word substitutions Although every attempt has been made by the provider to proofread this document, occasional misspellings and typographical errors may still be present Due to the previous pandemic, and the use of personal protective equipment (PPE) This may decrease voice recognition accuracy Inadvertent type soldering machine tender errors may occur 12/08/2023 History of venous thromboembolism (ICD-10 - Z86.718) Acute Concerns/Problem List: 12/08/2023 Chronic conditions are stable as per HPI Breathing status is stable Will see him back in 4 to 6 months for routine follow-up visit Labs reviewed today, Improving glycemic index Reviewed with patient the importance of medication and treatment plan compliance with BP goal of less then 140/90 per JNC 8 guidelines based on patient's age. This will ensure optimal health outcomes and prevent target organ damage. Made aware that uncontrolled hypertension may be silent and result in a stroke, heart attack, renal failure or even . Discussed the rationale for individualized medication regimen and the effects of their BP. Instructed to seek emergent care if the patient develops a headache, blurry vision, dizziness, chest pain or pressure. Of note, some information is being carried forward from prior records for informational purposes only and is being cited so that efficiency, safety and quality of the patient's care is not compromised This note was prepared using voice recognition software and direct typing Please excuse inadvertent type soldering machine tender or typing errors, or uncorrected word substitutions Although every attempt has been made by the provider to proofread this document, occasional misspellings and typographical errors may still be present Due to the previous pandemic, and the use of personal protective equipment (PPE) This may decrease voice recognition accuracy Inadvertent type soldering machine tender errors may occur PLAN OF TREATMENT Pending Test Test Name Order Date 25OH VITAMIN D 12/08/2023 CBC (COMPLETE BLOOD COUNT) WITH DIFF COMPREHENSIVE METABOLIC PANEL 12/08/2023 HEMOGLOBIN A1C 12/08/2023 LIPID PANEL 12/08/2023 TSH WITH REFLEX TO FT4 12/08/2023 URINALYSIS W/REFLEX CULTURE 12/08/2023 Next Appt Details Provider Name:PHILIPP BARROW, 09/12/2024 03:00:00 PM, [address] [facility], [facility] [address], [place], [address], Progress Notes * Isabelle FRIENDOB:1965 (58 yo M)Acc No.[id number]:12/08/2023 CPE Patient:??Juni FRIEND Provider:??PHILIPP BARROW NP :1965?Age:58 Y?Sex:Ma le Date:12/08/2023 Address: [address] [place], [id number] Subjective: * Chief Complaints: * ?1. Pt seen in office f or CPE with lab.. * HPI: ?Constitutional:? Patient is here for CPE ?Full past medical history, social history, family history, ?allergies and current medications were reviewed and updated. ?Hx was reviewed which includes ? PHQ 9 scale for depression screening, social history, family history, ?medical history, surgical history ?They are coming to us from previous practice through [facility] ?Acute Concerns/Problem List: ?12/08/2023 ?no acute concerns ?R sided chest pain with significant shortness of breath with exertion for 1+ year ?that has since improved with use of mycophenolate/immunosuppresion/Sulfasalazine ?Seeing for dx of polyarthritis raynauds, immuno/infl disorder ?Rheumatology notes were reviewed ?He has anti-synthetase syndrome, diagnosed by meeting criteria that includes ?Polyarthritis, Raynauds, CT chest findings of interstitial lung disease ?Underwent recent course of prednisone with good results and inflammatory arthritis ?He was recently seen by meat boner and slicer at [facility], and January 2023, Dr Berg ?Currently on high-dose course of prednisone ?PFTs in late July 2022 showed TLC of 60% consistent with moderate restrictive lung disease ?He did see hematology for hypercoagulable work-up, Angie ? DC off of Eliquis in March 2023 ?Colonoscopy performed July 05 2023 Caden ?He had been incarcerated for 4 years and had not seen a primary care in over 5 years ?Acute Hospitalizations: ?Patient was admitted on 10/18/22 ?Patient was discharged on 10/19/22 from [facility] ? with pastt history includes interstitial lung disease ?Not on chronic oxygen dependence, Chronic immunosuppressant therapy, mycophenolate, chronic steroids ?please see previous H&P's for further detaailed history ?Patient reports that he had sudden onset of chest pain and shortness of breathe tuesday ?This prompted an emergency department visit ?Of note he was seen a month prior for atypical chest pain and diagnosed ? with pleuritic chest pain and ruled out ?He returned back with this pain and shortness of breath ?CAT scan angiography of the chest was performed and revealing acute PE, ? right upper lobe segmental and subsegmental pulmonary artery divisions ?Multifocal reticular fibrotic changes in the upper lobes with extensive interstitiall thickening ?and honeycombing at the bases ?Could be inflammatory or infectious ?Patient was subsequently started on Eliquis upon discharge 10 mg twice a day for the first 7 days and ?And he will transition to 5 mg twice daily ?Patient was put on Zithromax for possible bronchitis given findings ?He was not found to be hypoxic, tachycardic nor were there any hemodynamic instability ?There was no right heart strain evident ?Lower extremity ultrasounds with no acute DVT in the right lower extremity ?However there was a nonocclusive thrombus in the left popliteal vein left CFV and left SFV remain patent ?Comprehensive labs, 11/2023 ?Hemoglobin A1c of 5.3, previously 5.9 ?Electrolytes renal function LFTs are stable ?CBC mostly stable, hemoglobin 12.4, hematocrit 39.4, normal MCV and platelets, WBC 13.7 ?Total cholesterol 140, LDL 72, HDL 43, triglycerides 126 ?Vitamin D 23 ?TSH 1.79 ?UA unremarkable ?PSA 0.3 ?Hypercoagulable workup unremarkable ?At home sugars done regularly, usually less than 120 ?Social Hx ?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 * ROS:?All Other Systems:?Review of Systems (ROS)??All others negative except those mentioned in HPI.? * Medical History:??Talya s yndrome. * Surgical History:??vasectomy , removal of left testicle . * Hospitalization/Major Diagno stic Procedure:??Denies Past Hospitalization. * Family History:??Father: dec eased.??Mother: unknown.??3 sister(s) - healthy. 1 son(s) , 2 daughter(s) - healthy. .?? * Social History:?Tobacco Use:??Tobacco Use/Smoking??Are you a??nonsmoker.?? * Medications:??Taking sulfaSA LAzine 500 MG Tablet 1 tablet Orally Once a day , Taking Mycophenolate Mofetil 500 MG Tablet Oral , Not-Taking Azithromycin 1 GM Packet as directed Orally , Not-Taking Eliquis 5 MG Tablet 1 tablet Orally Twice a day , Discontinued traMADol HCl 50 MG Tablet 1 tablet as needed Orally Once a day , Medication List reviewed and reconciled with the patient * Allergies:??N.K.D.A. Objective: * Vitals:??HR:77/min, BP:132/8 0mm Hg, Wt:205lbs, BMI:27.04Index, Ht: 73 in, Oxygen sat %:97%. * Examination: ?General Examination: ?GENERAL APPEARANCE:??in no acute distress, well developed, well nourished.??HEAD:??normocephalic, atraumatic.??EYES:??pupils equal, round, reactive to light and accommodation.??EARS:??normal.??ORAL CAVITY:??mucosa moist.??THROAT:??clear.??NECK/THYROID:??neck supple, full range of motion, no cervical lymphadenopathy.??SKIN:??no suspicious lesions, warm and dry.??HEART:??no murmurs, regular rate and rhythm, S1, S2 normal.??LUNGS:??diminished in the based, clear through out all other garcia.??ABDOMEN:??normal, bowel sounds present, soft, nontender, nondistended.??EXTREMITIES:??no clubbing, cyanosis, or edema.??NEUROLOGIC:??nonfocal, motor strength normal upper and lower extremities, sensory exam intact.? 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 Acute Concerns/Problem List: 12/08/2023 Chronic conditions are stable as per HPI Breathing status is stable Will see him back in 4 to 6 months for routine follow-up visit Labs reviewed today, Improving glycemic index Reviewed with patient the importance of medication and treatment plan compliance with BP goal of less then 140/90 per JNC 8 guidelines based on patient's age. This will ensure optimal health outcomes and prevent target organ damage. Made aware that uncontrolled hypertension may be silent and result in a stroke, heart attack, renal failure or even . Discussed the rationale for individualized medication regimen and the effects of their BP. Instructed to seek emergent care if the patient develops a headache, blurry vision, dizziness, chest pain or pressure. Of note, some information is being carried forward from prior records for informational purposes only and is being cited so that efficiency, safety and quality of the patient's care is not compromised This note was prepared using voice recognition software and direct typing Please excuse inadvertent type soldering machine tender or typing errors, or uncorrected word substitutions Although every attempt has been made by the provider to proofread this document, occasional misspellings and typographical errors may still be present Due to the previous pandemic, and the use of personal protective equipment (PPE) This may decrease voice recognition accuracy Inadvertent type soldering machine tender errors may occur. Plan: * Treatment: 2.??Essential (primary) hype rtension?LAB: 25OH VITAMIN D ?LAB: CBC (COMPLETE BLOOD COUNT) WITH DIFF ?LAB: COMPREHENSIVE METABOLIC PANEL ?LAB: HEMOGLOBIN A1C ?LAB: LIPID PANEL ?LAB: TSH WITH REFLEX TO FT4 ?LAB: URINALYSIS W/REFLEX CULTURE 3.??Pre-diabetes?LAB: 25OH VITAMIN D ?LAB: CBC (COMPLETE BLOOD COUNT) WITH DIFF ?LAB: COMPREHENSIVE METABOLIC PANEL ?LAB: HEMOGLOBIN A1C ?LAB: LIPID PANEL ?LAB: TSH WITH REFLEX TO FT4 ?LAB: URINALYSIS W/REFLEX CULTURE * Images: Billing Information: * Visit Code:?? [id number] Preventive Care Est Pt. Age 40-64. * Procedure Codes:?? Care Plan Details* * Sign off status: Completed true * Provider:??PHILIPP BARROW NP Date:??11/16 History and Physical Notes * HPI (History of Present Illness) Category Sub-Category Detail Notes Category Not es Constitutional Patient is here for CPE Full past medical history, social history, family history, allergies and current medications were reviewed and updated. Hx was reviewed which includes PHQ 9 scale for depression screening, social history, family history, medical history, surgical history They are coming to us from previous practice through [facility] Acute Concerns/Problem List: 12/08/2023 no acute concerns R sided chest pain with significant shortness of breath with exertion for 1+ year that has since improved with use of mycophenolate/immunosuppresion/Sulf asalazine Seeing for dx of polyarthritis raynauds, immuno/infl disorder Rheumatology notes were reviewed He has anti-synthetase syndrome, diagnosed by meeting criteria that includes Polyarthritis, Raynauds, CT chest findings of interstitial lung disease Underwent recent course of prednisone with good results and inflammatory arthritis He was recently seen by meat boner and slicer at [facility] [place], and January 2023, Dr Berg Currently on high-dose course of prednisone PFTs in late July 2022 showed TLC of 60% consistent with moderate restrictive lung disease He did see hematology for hypercoagulable work-up, Angie SANTOS off of Eliquis in March 2023 Colonoscopy performed July 05 2023 Caden He had been incarcerated for 4 years and had not seen a primary care in over 5 years Acute Hospitalizations: Patient was admitted on 10/18/22 Patient was discharged on 10/19/22 from [facility] with pastt history includes interstitial lung disease Not on chronic oxygen dependence, Chronic immunosuppressant therapy, mycophenolate, chronic steroids please see previous H&P's for further detaailed history Patient reports that he had sudden onset of chest pain and shortness of breathe tuesday This prompted an emergency department visit Of note he was seen a month prior for atypical chest pain and diagnosed with pleuritic chest pain and ruled out He returned back with this pain and shortness of breath CAT scan angiography of the chest was performed and revealing acute PE, right upper lobe segmental and subsegmental pulmonary artery divisions Multifocal reticular fibrotic changes in the upper lobes with extensive interstitiall thickening and honeycombing at the bases Could be inflammatory or infectious Patient was subsequently started on Eliquis upon discharge 10 mg twice a day for the first 7 days and And he will transition to 5 mg twice daily Patient was put on Zithromax for possible bronchitis given findings He was not found to be hypoxic, tachycardic nor were there any hemodynamic instability There was no right heart strain evident Lower extremity ultrasounds with no acute DVT in the right lower extremity However there was a nonocclusive thrombus in the left popliteal vein left CFV and left SFV remain patent Comprehensive labs, 11/2023 Hemoglobin A1c of 5.3, previously 5.9 Electrolytes renal function LFTs are stable CBC mostly stable, hemoglobin 12.4, hematocrit 39.4, normal MCV and platelets, WBC 13.7 Total cholesterol 140, LDL 72, HDL 43, triglycerides 126 Vitamin D 23 TSH 1.79 UA unremarkable PSA 0.3 Hypercoagulable workup unremarkable At home sugars done regularly, usually less than 120 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 no tobacco use no drug use Health Maintenance: No COVID MRNA No Flu 2022 defers TDAP 2016 Cscope - 07/05/2023 Examination Category Sub-Category Detail Notes Category Not es General Examination GENERAL APPEARANCE: in no ac [place] distress, well developed, well nourished HEAD: normocephalic, atrau matic EYES: pupils equal, round, reactive to light and accommodation EARS: normal THROAT: clear NECK/THYROID: neck supple, full ra nge of motion, no cervical lymphadenopathy HEART: no murmurs, regular rate and rhythm, S1, S2 normal LUNGS: diminished in the ba sed, clear through out all other garcia ABDOMEN: normal, bowel sounds present, soft, nontender, nondistended NEUROLOGIC: nonfocal, motor stre ngth normal upper and lower extremities, sensory exam intact SKIN: no suspicious lesion s, warm and dry EXTREMITIES: no clubbing, cyanosi s, or edema ORAL CAVITY: mucosa moist
--- OUTSIDE RECORDS SUMMARY | 2024-07-17 11:44 | XMS_ITS ---
Author Organization [facility] Address [address] [place] [address] Care Team Providers Care Lumber Sorter Machine Name Role Phone PHILIPP BARROW Unavailable [phone] REASON FOR VISIT urgent visit Encounters Encounter Location Date Provider Diagnosis [facility] [address] [address] 02/01/2024 PHILIPP BARROW PLAN OF TREATMENT Next Appt Details Provider Name:PHILIPP BARROW, 09/12/2024 03:00:00 PM, [address] [address], [place], [address], Progress Notes * Isabelle FRIENDOB:1965 (59 yo M)Acc No.[id number]:02/01/2024 Patient:??Juni FRIEND :1965?Age:59 Y?Sex:Tammy pang [address] [place] [address] * true * Date:??
--- OUTSIDE RECORDS SUMMARY | 2024-07-17 11:44 | XMS_ITS ---
Author Organization [facility] Address [address] [place] [address] Care Team Providers Care Farm Management Teacher Name Role Phone PHILIPP BARROW Unavailable [phone] ALLERGIES No Known Allergies REASON FOR VISIT Pt seen in office for urgent visit, Pt c/o swelling in his finger for 3 days causing pain/redness. MEDICATIONS Medication SIG (Take, Route, Frequency, Duration) Notes Start Date End Date Status predniSONE 5 MG Take 4 tablets daily for the first week Take 3 tablets daily for the second week Take 2 tablets daily for the third week Take 1 tablets daily for the fourth week Orally Once a day for 28 days 02/02/2024 Active Eliquis 5 MG 1 tablet Orally Twic e a day for 30 days Not-Taking Mycophenolate Mofetil 500 MG Oral for 30 Active sulfaSALAzine 500 MG 1 tablet Orally Onc e a day Active SOCIAL HISTORY Tobacco Use: Social History Observation Description Date Details (start date - stop date) Never Smoker NA - NA Sex Assigned At : Social History Observation Description Sex Assigned At Unknown Tobacco Use/Smoking Question Answer Notes Are you a nonsmoker VITAL SIGNS Heart Rate 78 /min 02/02/2024 Blood pressure systolic 116 mm Hg 02/02/20 24 Blood pressure diastolic 82 mm Hg 024 Weight 205 lbs 02/02/2024 BMI 27.04 kg/m2 02/02/2024 Height 73 in 02/02/2024 Oximetry 98 % 02/02/2024 Encounters Encounter Location Date Provider Diagnosis [facility] [address] [place] [id number] 02/02/2024 PHILIPP BARROW Finger pain, left M79.645 ; Polyarthritis, inflammatory M06.4 ; 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 and Raynaud's disease without gangrene I73.00 ASSESSMENTS Encounter Date Diagnosis Assessment Notes Treatment Notes Treatment Clinical Notes Section Notes 02/02/2024 Finger pain, left (ICD-10 - M79.645) Recently finished 4-week prednisone course about 2 days ago I do not think it is coincidental that this pain has developed suddenly I did recommend he contact his autos disassembler No imaging at this time as this is atraumatic Think this is all probably arthropathy and inflammatory Of note, some information is being carried forward from prior records for informational purposes only and is being cited so that efficiency, safety and quality of the patient's care is not compromised This note was prepared using voice recognition software and direct typing Please excuse inadvertent sewer and inspector or typing errors, or uncorrected word substitutions Although every attempt has been made by the provider to proofread this document, occasional misspellings and typographical errors may still be present Due to the previous pandemic, and the use of personal protective equipment (PPE) This may decrease voice recognition accuracy Inadvertent sewer and inspector errors may occur 02/02/2024 Polyarthritis, inflammatory (ICD-10 - M06.4) Recently finished 4-week prednisone course about 2 days ago I do not think it is coincidental that this pain has developed suddenly I did recommend he contact his autos disassembler No imaging at this time as this is atraumatic Think this is all probably arthropathy and inflammatory Of note, some information is being carried forward from prior records for informational purposes only and is being cited so that efficiency, safety and quality of the patient's care is not compromised This note was prepared using voice recognition software and direct typing Please excuse inadvertent sewer and inspector or typing errors, or uncorrected word substitutions Although every attempt has been made by the provider to proofread this document, occasional misspellings and typographical errors may still be present Due to the previous pandemic, and the use of personal protective equipment (PPE) This may decrease voice recognition accuracy Inadvertent sewer and inspector errors may occur 02/02/2024 Antisynthetase syndrome (ICD-10 - 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) Recently finished 4-week prednisone course about 2 days ago I do not think it is coincidental that this pain has developed suddenly I did recommend he contact his autos disassembler No imaging at this time as this is atraumatic Think this is all probably arthropathy and inflammatory Of note, some information is being carried forward from prior records for informational purposes only and is being cited so that efficiency, safety and quality of the patient's care is not compromised This note was prepared using voice recognition software and direct typing Please excuse inadvertent sewer and inspector or typing errors, or uncorrected word substitutions Although every attempt has been made by the provider to proofread this document, occasional misspellings and typographical errors may still be present Due to the previous pandemic, and the use of personal protective equipment (PPE) This may decrease voice recognition accuracy Inadvertent sewer and inspector errors may occur 02/02/2024 Raynaud's disease without gangrene (ICD-10 - I73.00) Recently finished 4-week prednisone course about 2 days ago I do not think it is coincidental that this pain has developed suddenly I did recommend he contact his autos disassembler No imaging at this time as this is atraumatic Think this is all probably arthropathy and inflammatory Of note, some information is being carried forward from prior records for informational purposes only and is being cited so that efficiency, safety and quality of the patient's care is not compromised This note was prepared using voice recognition software and direct typing Please excuse inadvertent sewer and inspector or typing errors, or uncorrected word substitutions Although every attempt has been made by the provider to proofread this document, occasional misspellings and typographical errors may still be present Due to the previous pandemic, and the use of personal protective equipment (PPE) This may decrease voice recognition accuracy Inadvertent sewer and inspector errors may occur PLAN OF TREATMENT Medication Medication Name Sig Start Date Stop Date Notes predniSONE 5 MG Take 4 tablets daily for the first week Take 3 tablets daily for the second week Take 2 tablets daily for the third week Take 1 tablets daily for the fourth week Orally Once a day for 28 days 02/02/2024 Next Appt Details Provider Name:PHILIPP BARROW, 09/12/2024 03:00:00 PM, [address] [facility], [facility] [address], [place], [address], Progress Notes * Isabelle FRIENDOB:1965 (59 yo M)Acc No.[id number]:02/02/2024 Progress Notes Patient:??Juni FRIEND Provider:??PHILIPP BARROW NP :1965?Age:59 Y?Sex:Tammy pang Date:02/02/2024 Address:[place], [place] Subjective: * Chief Complaints: * ?1. Pt seen in office f or urgent visit, Pt c/o swelling in his finger for 3 days causing pain/redness.. * HPI: ?Constitutional:? Patient with PMH of antisynthetase syndrome, Inflammatory polyarthritis ? presents for pain and swelling in his L middle finger. ?Started on Tuesday afternoon. ?Reports pain, swelling. no trauma or injury ?Worst in the PIP. Describes the pain as a sharp pain, rating a 7/10. On Tuesday, was a 10/10. ?Had trouble sleeping. Difficult and painful to close fist. ?At home, had tried wrapping, Icy-Hot cream, Tylenol, and warm water soaks without much relief. ?Could not go to work Tuesday because of how swollen and painful hand was. ?This is the third time this has happened to patient. ?In the past two instances, the pain and swelling self-resolves in a few hours. ?Last visit with autos disassembler was at the end of December 2023. ?He takes sulfasalazine as well as mycophenolate ?He recently completed course of prednisone over 4 weeks ?He did not contact his autos disassembler. * ROS:?All Other Systems:?Review of Systems (ROS)??All others negative except those mentioned in HPI.? * Medical History:??Raynauds s yndrome. * Surgical History:??vasectomy , removal [...] Mofetil 500 MG Tablet Oral , Not-Taking Eliquis 5 MG Tablet 1 tablet Orally Twice a day , Discontinued Azithromycin 1 GM Packet as directed Orally , Medication List reviewed and reconciled with the patient * Allergies:??N.K.D.A. Objective: * Vitals:??HR:78/min, BP:116/8 2mm Hg, Wt:205lbs, BMI:27.04Index, Ht: 73 in, Oxygen sat %:98%. * Examination: ?General Examination: ?GENERAL APPEARANCE:??in no acute distress, well developed, well nourished.??HEAD:??normocephalic, atraumatic.??EYES:??pupils equal, round, reactive to light and accommodation.??EARS:??normal.??ORAL CAVITY:??mucosa moist.??THROAT:??clear.??NECK/THYROID:??neck supple, full range of motion, no cervical lymphadenopathy.??SKIN:??no suspicious lesions, warm and dry.??HEART:??no murmurs, regular rate and rhythm, S1, S2 normal.??LUNGS:??clear to auscultation bilaterally.??ABDOMEN:??normal, bowel sounds present, soft, nontender, nondistended.??EXTREMITIES:??no clubbing, cyanosis, or edema.??NEUROLOGIC:??nonfocal, motor strength normal upper and lower extremities, sensory exam intact.? Assessment: * Assessment: 1.??Finger pain, left - M79. 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 Recently finished 4-week pre dnisone course about 2 days ago I do not think it is coincidental that this pain has developed suddenly I did recommend he contact his autos disassembler No imaging at this time as this is atraumatic Think this is all probably arthropathy and inflammatory Of note, some information is being carried forward from prior records for informational purposes only and is being cited so that efficiency, safety and quality of the patient's care is not compromised This note was prepared using voice recognition software and direct typing Please excuse inadvertent sewer and inspector or typing errors, or uncorrected word substitutions Although every attempt has been made by the provider to proofread this document, occasional misspellings and typographical errors may still be present Due to the previous pandemic, and the use of personal protective equipment (PPE) This may decrease voice recognition accuracy Inadvertent sewer and inspector errors may occur. Plan: * Treatment: Care Plan: * Problems:?? * Images: Billing Information: * Visit Code:?? 30154 Office Visit, Est Pt., Level 4. Modifiers: 25 * Procedure Codes:?? Care Plan Details* * Sign off status: Completed true * Provider:??PHILIPP BARROW NP Date:??01/15 History and Physical Notes * HPI (History of Present Illness) Category Sub-Category Detail Notes Category Not es Constitutional Patient with PMH of antisynthetase syndrome, Inflammatory polyarthritis presents for pain and swelling in his L middle finger. Started on Tuesday afternoon. Reports pain, swelling. no trauma or injury Worst in the PIP. Describes the pain as a sharp pain, rating a 7/10. On Tuesday, was a 10/10. Had trouble sleeping. Difficult and painful to close fist. At home, had tried wrapping, Icy-Hot cream, Tylenol, and warm water soaks without much relief. Could not go to work Tuesday because of how swollen and painful hand was. This is the third time this has happened to patient. In the past two instances, the pain and swelling self-resolves in a few hours. Last visit with autos disassembler was at the end of December 2023. He takes sulfasalazine as well as mycophenolate He recently completed course of prednisone over 4 weeks He did not contact his autos disassembler Examination Category Sub-Category Detail Notes Category Not es General Examination GENERAL APPEARANCE: in no ac [place] distress, well developed, well nourished HEAD: normocephalic, atrau matic EYES: pupils equal, round, reactive to light and accommodation EARS: normal THROAT: clear NECK/THYROID: neck supple, full ra nge of motion, no cervical lymphadenopathy HEART: no murmurs, regular rate and rhythm, S1, S2 normal LUNGS: clear to auscultatio n bilaterally ABDOMEN: normal, bowel sounds present, soft, nontender, nondistended NEUROLOGIC: nonfocal, motor stre ngth normal upper and lower extremities, sensory exam intact SKIN: no suspicious lesion s, warm and dry EXTREMITIES: no clubbing, cyanosi s, or edema ORAL CAVITY: mucosa moist
--- OUTSIDE RECORDS SUMMARY | 2024-07-17 11:45 | XMS_ITS | Patient Health Record ---
Author Organization Inside [facility] Address [address] [place] [address] Care Team Providers Care Funeral Director Name Role Phone PHILIPP BARROW Unavailable [phone] ALLERGIES No Known Allergies RESULTS Component Value Reference Range Notes GLYCOHEMOGLOBIN PROFILE Reviewed date:12/02/2023 07:26:57 AM Interpretation: Performing Lab: Notes/Report: GLYCATED HEMOGLOBIN A1C 5.3 <6.5 % ESTIMATED AVERAGE GLUCOSE 105 COMPREHENSIVE METABOLIC PANE L Reviewed date:12/01/2023 05:12:22 PM Interpretation: Performing Lab: Notes/Report: Note Original Orderi ng Provider: PHILIPP BARROW POLICE DETENTION ATTENDANT GLUCOSE 98 70-100 mg/dL Reference range applicable to fasting specimens only BUN 15 5-25 mg/dL CREAT 0.97 0.7-1.3 mg/dL GLOMERULAR FILTRATION RATE 92 >60 This eGFR result was calculated using the CKD-EPI 2020 Creatinine Equation SODIUM 140 135-145 mEq/L POTASSIUM 4.1 3.5-5.5 mmol/L CHLORIDE 105 96-110 mmol/L CO2 28 21-32 mmol/L ANION GAP 7 3-11 CALCIUM 8.7 8.5-10.5 mg/dL TOTAL PROTEIN 6.7 6.0-8.0 G/dL ALBUMIN 3.8 3.2-5.0 G/dL BILI,TOTAL 0.2 0.0-1.4 mg/dL SGOT 19 10-42 U/L SGPT 23 10-60 U/L ALK PHOS 103 42-121 U/L CBC WITH AUTO DIFF Reviewed date:12/02/2023 07:25:38 AM Interpretation: Performing Lab: Notes/Report: WBC 13.7 4.8-10.8 x10-3/uL RBC 4.5 4.5-5.5 x10-6/uL HEMOGLOBIN 12.4 13.5-17.5 g/dL HEMATOCRIT 39.4 42-54 % MCV 88.3 79-98 fL MCH 27.8 27-32 pg MCHC 31.5 32-37 g/dL RDW 13.9 11-15 % PLT COUNT 282 130-400 x10-3/uL MEAN PLATELET VOLUME 10.6 7-11 fL NRBC % AUTO 0.0 <1 % NRBC # AUTO 0.00 <0.1 x10-3/uL LIPID PROFILE Reviewed date:12/01/2023 05:12:14 PM Interpretation: Performing Lab: Notes/Report: CHOLESTEROL 140 0-200 mg/dL TRIGLYCERIDES 126 0-150 mg/dL VITAMIN D, 25-HYDROXY Reviewed date:12/01/2023 05:11:48 PM Interpretation: Performing Lab: Notes/Report: VITAMIN D, 25-HYDROXY 23 30-80 ng/mL TSH Reviewed date:12/01/2023 05:11:56 PM Interpretation: Performing Lab: Notes/Report: TSH 1.79 0.40-4.00 uIU/ml UA WITH CULTURE IF INDICATED Reviewed date:12/01/2023 04:30:35 PM Interpretation: Performing Lab: Notes/Report: GLUCOSE, (UA) NEGATIVE NEGATIVE mg/dL BILIRUBIN, URINE NEGATIVE NEGATIVE KETONE, URINE NEGATIVE NEGATIVE mg/dL SPECIFIC GRAVITY, URINE 1.015 1.003-1.030 BLOOD, URINE NEGATIVE NEGATIVE PH, URINE 6.0 5.0-8.0 PROTEIN, URINE NEGATIVE <= TRACE mg/dl UROBILINOGEN, URINE 0.2 0.2-1.0 E.U./dL NITRITE, URINE NEGATIVE NEGATIVE LEUKOCYTE ESTERASE, URINE NEGATIVE NEGATIVE FREE PSA PROFILE Reviewed date:12/01/2023 05:12:04 PM Interpretation: Performing Lab: Notes/Report: PROSTATIC SPECIFIC ANTIGEN 0.3 0.0-4.0 ng/mL The Siemens [employer] Chemiluminescent Immunoassay is used. Results obtained with different assay methods or kits cannot be used interchangeably. Results cannot be interpreted as absolute evidence of the presence or absence of malignant disease REASON FOR REFERRAL No Information MEDICATIONS Medication SIG (Take, Route, Frequency, Duration) [...] Question Answer Notes Are you a nonsmoker Alcohol Screen (Audit-C) Question Answer Notes Did you have a drink containing alcohol in the p ast year? 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 Antisynthe tase syndrome (851253254) VITAL SIGNS Heart Rate 78 /min 02/02/2024 Oximetry 98 % 02/02/2024 Blood pressure diastolic 82 mm Hg 02/02/2024 Height 73 in 02/02/2024 Blood pressure systolic 116 mm Hg 02/02/2024 Weight 205 lbs 02/02/2024 BMI 27.04 kg/m2 02/02/2024 Encounters Encounter Location Date Provider Diagnosis [place] [address] [address] 12/08/2023 PHILIPP BARROW Essential (primary) hypertension I10 ; Annual physical exam Z00.00 ; 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 ; Immunosuppressed status D84.9 ; Raynaud's disease without gangrene I73.00 ; Pre-diabetes R73.03 and History of venous thromboembolism Z86.718 [place] [address] [address] 02/02/2024 PHILIPP BARROW Finger pain, left M7 9.645 ; Polyarthritis, inflammatory M06.4 ; 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 and Raynaud's disease without gangrene I73.00 [place] [address] 02/01/2024 PHILIPP CHILDRESSJosé uLis ASSESSMENTS Encounter Date Diagnosis Assessment Notes Treatment [...] software and direct typing Please excuse inadvertent telecom assistant or typing errors, or uncorrected word substitutions Although every attempt has been made by the provider to proofread this document, occasional misspellings and typographical errors may still be present Due to the previous pandemic, and the use of personal protective equipment (PPE) This may decrease voice recognition accuracy Inadvertent telecom assistant errors may occur 12/08/2023 Annual physical exam [...] software and direct typing Please excuse inadvertent telecom assistant or typing errors, or uncorrected word substitutions Although every attempt has been made by the provider to proofread this document, occasional misspellings and typographical errors may still be present Due to the previous pandemic, and the use of personal protective equipment (PPE) This may decrease voice recognition accuracy Inadvertent telecom assistant errors may occur 02/02/2024 Finger pain, left (ICD-10 - M79.645) Recently finished 4-week prednisone course about 2 days ago I do not think it is coincidental that this pain has developed suddenly I did recommend he contact his child care coordinator No imaging at this time as this is atraumatic Think this is all probably arthropathy and inflammatory Of note, some information is being carried forward from prior records for informational purposes only and is being cited so that efficiency, safety and quality of the patient's care is not compromised This note was prepared using voice recognition software and direct typing Please excuse inadvertent telecom assistant or typing errors, or uncorrected word substitutions Although every attempt has been made by the provider to proofread this document, occasional misspellings and typographical errors may still be present Due to the previous pandemic, and the use of personal protective equipment (PPE) This may decrease voice recognition accuracy Inadvertent telecom assistant errors may occur 02/02/2024 Polyarthritis, inflammatory (ICD-10 - M06.4) Recently finished 4-week prednisone course about 2 days ago I do not think it is coincidental that this pain has developed suddenly I did recommend he contact his child care coordinator No imaging at this time as this is atraumatic Think this is all probably arthropathy and inflammatory Of note, some information is being carried forward from prior records for informational purposes only and is being cited so that efficiency, safety and quality of the patient's care is not compromised This note was prepared using voice recognition software and direct typing Please excuse inadvertent telecom assistant or typing errors, or uncorrected word substitutions Although every attempt has been made by the provider to proofread this document, occasional misspellings and typographical errors may still be present Due to the previous pandemic, and the use of personal protective equipment (PPE) This may decrease voice recognition accuracy Inadvertent telecom assistant errors may occur 02/02/2024 Antisynthetase syndrome (ICD-10 - D89.89) Recently finished 4-week prednisone course about 2 days ago I do not think it is coincidental that this pain has developed suddenly I did recommend he contact his child care coordinator No imaging at this time as this is atraumatic Think this is all probably arthropathy and inflammatory Of note, some information is being carried forward from prior records for informational purposes only and is being cited so that efficiency, safety and quality of the patient's care is not compromised This note was prepared using voice recognition software and direct typing Please excuse inadvertent telecom assistant or typing errors, or uncorrected word substitutions Although every attempt has been made by the provider to proofread this document, occasional misspellings and typographical errors may still be present Due to the previous pandemic, and the use of personal protective equipment (PPE) This may decrease voice recognition accuracy Inadvertent telecom assistant errors may occur 12/08/2023 Antisynthetase syndrome (ICD-10 [...] software and direct typing Please excuse inadvertent telecom assistant or typing errors, or uncorrected word substitutions Although every attempt has been made by the provider to proofread this document, occasional misspellings and typographical errors may still be present Due to the previous pandemic, and the use of personal protective equipment (PPE) This may decrease voice recognition accuracy Inadvertent telecom assistant errors may occur 12/08/2023 Immunosuppressed status (ICD-10 [...] software and direct typing Please excuse inadvertent telecom assistant or typing errors, or uncorrected word substitutions Although every attempt has been made by the provider to proofread this document, occasional misspellings and typographical errors may still be present Due to the previous pandemic, and the use of personal protective equipment (PPE) This may decrease voice recognition accuracy Inadvertent telecom assistant errors may occur 02/02/2024 Raynaud's disease without gangrene (ICD-10 - I73.00) Recently finished 4-week prednisone course about 2 days ago I do not think it is coincidental that this pain has developed suddenly I did recommend he contact his child care coordinator No imaging at this time as this is atraumatic Think this is all probably arthropathy and inflammatory Of note, some information is being carried forward from prior records for informational purposes only and is being cited so that efficiency, safety and quality of the patient's care is not compromised This note was prepared using voice recognition software and direct typing Please excuse inadvertent telecom assistant or typing errors, or uncorrected word substitutions Although every attempt has been made by the provider to proofread this document, occasional misspellings and typographical errors may still be present Due to the previous pandemic, and the use of personal protective equipment (PPE) This may decrease voice recognition accuracy Inadvertent telecom assistant errors may occur 12/08/2023 Raynaud's disease without [...] software and direct typing Please excuse inadvertent telecom assistant or typing errors, or uncorrected word substitutions Although every attempt has been made by the provider to proofread this document, occasional misspellings and typographical errors may still be present Due to the previous pandemic, and the use of personal protective equipment (PPE) This may decrease voice recognition accuracy Inadvertent telecom assistant errors may occur 12/08/2023 Pre-diabetes (ICD-10 - [...] software and direct typing Please excuse inadvertent telecom assistant or typing errors, or uncorrected word substitutions Although every attempt has been made by the provider to proofread this document, occasional misspellings and typographical errors may still be present Due to the previous pandemic, and the use of personal protective equipment (PPE) This may decrease voice recognition accuracy Inadvertent telecom assistant errors may occur 12/08/2023 History of venous [...] software and direct typing Please excuse inadvertent telecom assistant or typing errors, or uncorrected word substitutions Although every attempt has been made by the provider to proofread this document, occasional misspellings and typographical errors may still be present Due to the previous pandemic, and the use of personal protective equipment (PPE) This may decrease voice recognition accuracy Inadvertent telecom assistant errors may occur PLAN OF TREATMENT Pending Test Test Name Order Date 25OH VITAMIN D 07/07/2023 25OH VITAMIN D 12/08/2023 CBC (COMPLETE BLOOD COUNT) WITH DIFF CBC (COMPLETE BLOOD COUNT) WITH DIFF COMPREHENSIVE METABOLIC PANEL 07/07/2023 COMPREHENSIVE METABOLIC PANEL 12/08/2023 HEMOGLOBIN A1C 12/08/2023 HEMOGLOBIN A1C 10/26/2022 HEMOGLOBIN A1C 03/07/2023 HEMOGLOBIN A1C 07/07/2023 LIPID PANEL 07/07/2023 LIPID PANEL 12/08/2023 PSA, FREE AND TOTAL 07/07/2023 TSH 07/07/2023 TSH WITH REFLEX TO FT4 12/08/2023 URINALYSIS W/REFLEX CULTURE 12/08/2023 URINALYSIS W/REFLEX CULTURE 07/07/2023 Future Test Test Name Order Date 25OH VITAMIN D 09/29/2022 CBC (COMPLETE BLOOD COUNT) WITH DIFF COMPREHENSIVE METABOLIC PANEL 09/29/2022 HEMOGLOBIN A1C 09/29/2022 LIPID PANEL 09/29/2022 PSA, SCREEN 09/29/2022 TSH WITH REFLEX TO FT4 09/29/2022 URINALYSIS W/REFLEX CULTURE 09/29/2022 Next Appt Details Provider Name:PHILIPP BARROW, 09/12/2024 03:00:00 PM, [address] [place] [address], [phone], Insurance Providers Payer Name Payer Address Payer Phone Subscriber Number Group Number Insured Name Patient Relationship to Insured Coverage Start Date Coverage End Date [facility] [address] [place] [address] [id number] Juni Friend Self - patient is the insured MEDICAL (GENERAL) HISTORY Medical History History ICD Code raynauds syndrome Surgical History Surgery Date(Month/Year) vasectomy removal of left testicle
--- NOTE | 2024-07-17 12:06 | A.OFFVIS_ITS ---
Vital Signs 07/17/24 12:07 Height 6 ft 2 in Weight 201 lb 11.567 oz BMI 25.9 BP 120/68 Blood Pressure Location Lt brachial Position Sitting Pulse 90 Pulse Source Pulse Oximeter Pulse Oximetry (%) 97 Oxygen Delivery Method Room Air Intake Visit Reasons: lungs Intake Note: Patient presents for follow up on his lungs. Allergies No Known Allergies [No Known Allergies*] Allergy (Verified 07/17/24 12:12) HPI HPI lungs: Details: left PIP swelling for a month He received a call from pulmologist reporting to him that his ILD has improved compared to last year. Raynauds active in the cold when he forgets gloves. HPI Comments Details: He feels well. Raynaud's is controlled with wearing gloves and using hot packs. He has a remote start her for his car. Joint symptoms have improved overall in the last couple of months. He has swelling in his left hand. Prednisone was prescribed by PCP but due to fear of taking prednisone he did not take it. Is aware that long-term prednisone can cause side effects. Denies recent infections. [facility] Medical History Raynaud disease Surgical History H/O removal of testicle Review of Systems Const All systems reviewed & are unremarkable except as noted in HPI and below Physical Exam Vital Signs: Last Vital Signs Pulse 90 07/17/24 12:07 BP 120/68 07/17/24 12:07 Pulse Ox 97 07/17/24 12:07 Oxygen Delivery Method Room Air 07/17/24 12:07 BMI result Body Mass Index 25.9 Const Other: General: Comfortable CVS: RRR Respiratory: Inspiratory crackles mid lung zones Skin: No lesions seen MSK: Tender to palpate left 3rd PIP with synovitis present. Rest of joints are without tenderness or synovitis. Good range of motion of upper extremities and lower extremities. Left shoulder is tender on palpation. Negative painful arc sign. Left trochanteric bursa tenderness is found. 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 Mycophenolate mofetil started 07/06/2022 to present. Sulfasalazine started 07/06/2023 to present. He has required courses of prednisone to control inflammatory arthritis. At this time he has monoarthritis affecting left 3rd PIP. He has had benefit with addition of sulfasalazine in controlling inflammatory arthritis. He had prednisone prescribed by PCP but has not taken it yet. I have asked him to call office to report prednisone course prescribed by PCP and for further recommendations. He is adverse to trying intra-articular cortisone injection to treat monoarthritis. Code(s): D89.89 - Other specified disorders involving the immune mechanism, not elsewhere classified Category: Medical Plan: Patient will call office to report prednisone regimen he has at home Continue sulfasalazine 1500 mg twice a day Continue mycophenolate mofetil 1500 mg twice a day He will call office when he needs refills Labs for disease and drug monitoring ordered on high-risk medication Return to clinic in 3 months Requesting last clinic note from Dr. Berg enterprise systems manager who is managing patient's interstitial lung disease (2) Other correction (current) drug therapy: Code(s): Z79.899 - Other terminal carman (current) drug therapy Category: Medical Plan: See above (3) Trochanteric bursitis, left hip: Comment: Chronic. Discussed diagnosis and management Code(s): M70.62 - Trochanteric bursitis, left hip Category: Medical Plan: PT ordered Return to clinic in 3 months (4) Tendinitis of left rotator cuff: Comment: Chronic. Suspect chronic rotator cuff tendinopathy. Code(s): M75.82 - Other shoulder lesions, left shoulder Category: Medical Plan: PT ordered Return to clinic in 3 months (5) Interstitial lung disease: Comment: Associated with antisynthetase syndrome. Patient reports recent testing reveals improvement compared to imaging and PFTs in the past. Mycophenolate mofetil is likely contributing to benefit. Code(s): J84.9 - Interstitial pulmonary disease, unspecified Category: Medical Plan: Continue mycophenolate mofetil 1500 mg twice a day Requesting pulmonology note Return to clinic in 3 months (6) Raynaud disease without gangrene: Comment: Controlled with conservative management Code(s): I73.00 - Raynaud's syndrome without gangrene Category: Medical Plan: Continue conservative management Orders: Orders C Reactive Protein 07/17/24 D89.89 - Other specified disorders involving the immune mechanism, not elsewhere classified, Z79.899 - Other terminal carman (current) drug therapy Alanine Aminotransferase 07/17/24 Z79.60 - adjunct faculty for medical terminology (current) use of unspecified immunomodulators and immunosuppressants Complete Blood Count Auto Diff 07/17/24 Z79.60 - adjunct faculty for medical terminology (current) use of unspecified immunomodulators and immunosuppressants Erythrocyte Sedimentation Rate 07/17/24 D89.89 - Other specified disorders involving the immune mechanism, not elsewhere classified, Z79.899 - Other terminal carman (current) drug therapy Aspartate Amino Transferase 07/17/24 Z79.60 - adjunct faculty for medical terminology (current) use of unspecified immunomodulators and immunosuppressants Creatinine 07/17/24 Z79.60 - [facility] (current) use of unspecified immunomodulators and immunosuppressants Hepatitis B,C Profile 07/17/24 D89.89 - Other specified disorders involving the immune mechanism, not elsewhere classified, Z79.899 - Other correction (current) drug therapy T Spot TB 07/17/24 D89.89 - Other specified disorders involving the immune mechanism, not elsewhere classified, Z79.899 - Other correction (current) drug therapy Referrals Physical Medicine and Rehabilitation Referral M70.62 - Trochanteric bursitis, left hip, M75.82 - Other shoulder lesions, left shoulder Coding Level of Care Code Est Pt Level 4 (79542) Complex EM visit Add On G2211 Diagnoses 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 Other terminal carman (current) drug therapy Z79.899 Trochanteric bursitis, left hip M70.62 Tendinitis of left rotator cuff M75.82 Interstitial lung disease J84.9 Raynaud disease without gangrene I73.00
[2024-07-17 12:07] VITALS: BP 120/68; PULSE 90; O2SAT 97; BMI 25.9
== END 2024-07-17 13:18 | disposition home or self-care (01) ==
PROVIDERS: PCP Family Medicine; Visit Provider Internal Medicine Rheumatology
DX: D89.89 Other specified disorders involving the immune mechanism, not elsewhere classified (principal); Z79.899 Other long term (current) drug therapy; M70.62 Trochanteric bursitis, left hip; M75.82 Other shoulder lesions, left shoulder; J84.9 Interstitial pulmonary disease, unspecified; I73.00 Raynaud's syndrome without gangrene
CPT/HCPCS: 99214

== ENCOUNTER → 2024-07-17 11:31 | Outpatient (BNVA) | payer BC, SELFPAY | PROVIDERS: PCP Family Medicine; Visit Provider Internal Medicine Rheumatology ==

== ENCOUNTER 2024-08-01 15:26 | Outpatient (REF) | payer BC, SELFPAY ==
[2024-08-01 17:11] LABS: Basophils Absolute Auto 0.1 X10*3/uL (0.0-0.2); Basophils Percent Auto 0.8 % (0-2); Eosinophils Percent Auto 21.3 % (0-4); Hematocrit 40.9 % (42.0-52.0); Hemoglobin 13.3 g/dl (14.0-18.0); Imm Gran Abs Auto 0.05 X10*3/uL (0.00-0.03); Imm Gran Pct Auto 0.4 % (0.0-0.4); Lymphocytes Absolute Auto 2.9 X10*3/uL (1.2-4.9); Lymphocytes Percent Auto 20.1 % (20-40); MANUAL DIFF FLAG SCAN; Mean Corpuscular HGB Conc 32.5 g/dl (31.0-36.0); Mean Corpuscular Hemoglobin 27.7 pg (27.0-33.0); Mean Platelet Volume 10.6 fL (9.4-12.4); Monocytes Absolute Auto 0.8 X10*3/uL (0.1-1.2); Monocytes Percent Auto 5.9 % (2-11); Neutrophils Absolute Auto 7.3 x10*3/uL (2.0-8.3); Neutrophils Percent Auto 51.5 % (45-73); Platelet Count 336 X10*3/uL (160-400); Red Blood Count 4.81 X10*6/uL (4.60-5.80); Red Cell Distribution Width 13.5 % (11.0-16.0); SCAN SMEAR FLAG 1; White Blood Count 14.2 X10*3/uL (4.8-10.8)
[2024-08-01 17:35] LABS: SLIDE REVIEW VERIFIED
[2024-08-01 17:43] LABS: Alanine Aminotransferase 25 U/L (0-40); Aspartate Amino Transferase 29 U/L (5-37); C Reactive Protein 0.14 mg/dL (< or = 0.50); Estimated Glomerular Filt Rate > 60
[2024-08-01 17:59] LABS: Erythrocyte Sedimentation Rate 6 MM/HR (0-15)
[2024-08-02 04:27] LABS: HBS Num1 3.55 mIU/mL (0-7.99); HBc Num1 0.16 S/CO (0.00-0.79); HBsAGNum1 0.34 S/CO (0.00-0.99); Hepatitis B Core Antibody Nonreactive (Nonreactive); Hepatitis B Surface Antigen Negative (Negative); ~HepC Num1 0.08 S/CO (0.00-0.79); ~Hepatitis B Surface Antibody NONREACTIVE (Nonreactive); ~Hepatitis C Antibody Nonreactive (Nonreactive)
[2024-08-04 15:49] LABS: TS Negative Control Passed; TS Panel A 0; TS Panel B 0; TS Positive Control Passed; TSpotTB Negative (Negative)
== END 2024-08-01 15:27 | disposition home or self-care (01) ==
LOC: HO.LAB 15:26
PROVIDERS: PCP Nurse Practitioner Acute Care; Visit Provider Internal Medicine Rheumatology
DX: D89.89 Other specified disorders involving the immune mechanism, not elsewhere classified (principal); Z79.60 Long term (current) use of unspecified immunomodulators and immunosuppressants; Z79.899 Other long term (current) drug therapy
CPT/HCPCS: 36415; 82565; 84450; 84460; 85025; 85652; 86140; 86481; 86704; 86706; 86803; 87340

== ENCOUNTER 2024-10-06 07:02 | Outpatient (REF) | payer BC, SELFPAY ==
[2024-10-06 08:39] LABS: Basophils Absolute Auto 0.1 X10*3/uL (0.0-0.2); Basophils Percent Auto 0.8 % (0-2); Eosinophils Absolute Auto 2.8 X10*3/uL (0.0-0.4); Eosinophils Percent Auto 23.5 % (0-4); Hemoglobin 13.5 g/dl (14.0-18.0); Imm Gran Abs Auto 0.03 X10*3/uL (0.00-0.03); Imm Gran Pct Auto 0.3 % (0.0-0.4); Lymphocytes Absolute Auto 2.6 X10*3/uL (1.2-4.9); Lymphocytes Percent Auto 21.3 % (20-40); MANUAL DIFF FLAG SCAN; Mean Corpuscular HGB Conc 31.4 g/dl (31.0-36.0); Mean Corpuscular Hemoglobin 27.3 pg (27.0-33.0); Mean Corpuscular Volume 86.9 fL (80.0-98.0); Mean Platelet Volume 10.6 fL (9.4-12.4); Monocytes Absolute Auto 0.7 X10*3/uL (0.1-1.2); Monocytes Percent Auto 6.2 % (2-11); Neutrophils Absolute Auto 5.7 x10*3/uL (2.0-8.3); Neutrophils Percent Auto 47.9 % (45-73); Platelet Count 291 X10*3/uL (160-400); Red Blood Count 4.95 X10*6/uL (4.60-5.80); Red Cell Distribution Width 13.5 % (11.0-16.0); SCAN SMEAR FLAG 1
[2024-10-06 08:51] LABS: Estimated Average Glucose 120 mg/dL; Hemoglobin A1c % 5.8 % (<6.0)
[2024-10-06 09:01] LABS: SLIDE REVIEW VERIFIED
[2024-10-06 09:16] LABS: Alanine Aminotransferase 36 U/L (0-40); Albumin Level 4.2 g/dL (3.5-5.0); Alkaline Phosphatase 113 U/L (39-117); Anion Gap 11 (12-20); Aspartate Amino Transferase 29 U/L (5-37); Bilirubin Total 0.5 mg/dL (0.0-1.0); Blood Urea Nitrogen 17 mg/dL (9-16); Carbon Dioxide 26 mmol/L (22-29); Chloride 106 mmol/L (96-108); Cholesterol 139 mg/dL (<200); Estimated Glomerular Filt Rate > 60; Glucose Random 103 mg/dL (60-115); HDL Cholesterol 38 mg/dL (>40); LDL Cholesterol Calculated 90 mg/dL (<100); Potassium 4.4 mmol/L (3.3-5.1); Sodium 139 mmol/L (135-145); Total Protein 7.4 g/dL (6.5-8.0); Triglycerides 55 mg/dL (<150)
[2024-10-06 09:35] LABS: Thyroid Stimulating Hormone 1.09 uIU/mL (0.32-4.0); Vitamin D 25-OH Total 19.7 ng/mL (>30)
[2024-10-06 10:29] LABS: Appearance Urine Clear; Color Urine Yellow; Glucose Urine UA Negative (Negative); Leukocyte Esterase Urine Negative (Negative); Nitrite Urine Negative (Negative); PH 7.5 (5.0-9.0); Urine Blood Negative (Negative); Urine Ketones Negative (Negative); Urine Protein Negative (Neg-Trace)
[2024-10-07 22:49] LABS: Sex Hormone Binding Globulin 43 nmol/L (22-77)
[2024-10-08 03:54] LABS: Follicle Stimulating Hormone 9.6 mIU/mL (1.4-12.8); Lutenizing Hormone 3.2 mIU/mL (1.5-9.3)
[2024-10-08 11:07] LABS: Free Prostate Spec Ag 0.2 ng/mL; Percent Free Prostate Spec Ag 67 % (calc) (>25); Prostate Specific Ag Total 0.3 ng/mL (< OR = 4.0)
[2024-10-13 11:13] LABS: Testosterone, Free 96 pg/mL (35.0-155.0); Testosterone, Total 524 ng/dL (250-1100)
== END 2024-10-06 07:03 | disposition home or self-care (01) ==
LOC: HO.LAB 07:02
PROVIDERS: PCP Nurse Practitioner Acute Care; Visit Provider Nurse Practitioner Acute Care
DX: Z00.00 Encounter for general adult medical examination without abnormal findings (principal); E55.9 Vitamin D deficiency, unspecified; R68.82 Decreased libido; Z13.220 Encounter for screening for lipoid disorders; Z13.1 Encounter for screening for diabetes mellitus; Z12.5 Encounter for screening for malignant neoplasm of prostate; Z13.29 Encounter for screening for other suspected endocrine disorder; Z13.6 Encounter for screening for cardiovascular disorders
CPT/HCPCS: 36415; 80053; 80061; 81003; 82306; 83001; 83002; 83036; 84154; 84270; 84402; 84403; 84443; 85025

== ENCOUNTER 2024-10-09 13:51 | Outpatient (AMB) | payer BC, SELFPAY ==
--- NOTE | 2024-10-09 14:00 | MHC.OFFVIS ---
Vital Signs 10/09/24 14:05 Height 6 ft 2 in Weight 216 lb 4.375 oz BMI 27.8 BP 118/80 Blood Pressure Location Lt brachial Position Sitting Pulse 78 Pulse Source Pulse Oximeter Pulse Oximetry (%) 99 Oxygen Delivery Method Room Air Intake Visit Reasons: Follow Up 3mo Intake Note: Patient presents for follow up on his lungs. Accompanied by: Self / Same As Patient Allergies No Known Allergies [No Known Allergies*] Allergy (Verified 10/09/24 14:00) HPI HPI Follow Up 3mo: Details: Raynauds active with trigger cold weather. Resolves with warming. He continues to have chronic pain and swelling in left 3rd finger worse in the morning. Denies dyspnea, pleurisy, new rash. Out of [facility] for 7 days. No recent infections. [facility] Medical History Raynaud disease Surgical History H/O removal of testicle Review of Systems Const All systems reviewed & are unremarkable except as noted in HPI and below Physical Exam Vital Signs: Last Vital Signs Pulse 78 10/09/24 14:05 BP 118/80 10/09/24 14:05 Pulse Ox 99 10/09/24 14:05 Oxygen Delivery Method Room Air 10/09/24 14:05 BMI result Body Mass Index 27.8 Office Procedures AMB Joint Injection/Aspiration Joint Injection/Aspiration Details: Left 3rd PIP Prep: site was prepped using aseptic technique Injected: 10 mg of, Kenalog, with 0.25 mL of and 1% plain lidocaine Procedure: The patient tolerated the procedure well. Postprocedure protocol was discussed with patient. Coding - Small Joint Procedure code (CPT) selection complete Office Meds lidocaine (PF) 10 mg/mL (1 %) injection solution Performing Provider: Carlos Corbin MD Performing Location: [facility] Administered by: Carlos Corbin MD on 10/09/24 21:23 Dose Route Admin Location Dispensed Lot Number Expiration Date ND Rn Emergency Room 2.5 mg Infiltration 2 mL [id number] [facility] Kenalog 40 mg/mL suspension for injection Performing Provider: Carlos Corbin MD Performing Location: [facility] Administered by: Carlos Corbin MD on 10/09/24 21:23 Dose Route Admin Location Dispensed Lot Number Expiration Date NDC Rn Emergency Room 10 mg intra-articular 1 mL [id number] [facility] Assessment & Plan Assessment & Plan (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 He agreed to intra-articular cortisone injection. 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 Mycophenolate mofetil started 07/06/2022 to present. Sulfasalazine started 07/06/2023 to present. He has required courses of prednisone to control inflammatory arthritis. Code(s): D89.89 - Other specified disorders involving the immune mechanism, not elsewhere classified Category: Medical Plan: Labs for drug monitoring on high-risk medication up-to-date Continue sulfasalazine 1500 mg twice a day Continue mycophenolate mofetil 1500 mg twice a day Patient received intra-articular cortisone injection to left 3rd PIP Return to clinic in 3 months Requesting last clinic note from Dr. Berg market research analyst who is managing patient's interstitial lung disease (2) Other halfway (current) drug therapy: Code(s): Z79.899 - Other halfway (current) drug therapy Category: Medical Plan: See above (3) Interstitial lung disease: Comment: Associated with antisynthetase syndrome. Patient reports recent testing reveals improvement compared to imaging and PFTs in the past. Mycophenolate mofetil is likely contributing to benefit. Code(s): J84.9 - Interstitial pulmonary disease, unspecified Category: Medical Plan: Continue mycophenolate mofetil 1500 mg twice a day Requesting pulmonology note x2 request He will be following up with Dr. Berg [facility] with upcoming appointment for echocardiogram and PFTs Return to clinic in 3 months (4) Raynaud disease without gangrene: Comment: Controlled with conservative management Rheumatology history: Amlodipine caused depression Code(s): I73.00 - Raynaud's syndrome without gangrene Category: Medical Plan: Continue conservative management Orders: Orders AMB Joint Injection/Aspiration 10/09/24 D89.89 - Other specified disorders involving the immune mechanism, not elsewhere classified Medications: Changed From mycophenolate mofetil 1.5 grams (3 x 500 mg) PO BID 30 days 180 tabs 1RF To mycophenolate mofetil 1.5 grams (3 x 500 mg) PO BID 540 tabs 0RF 90 days From sulfasalazine PO To sulfasalazine 1.5 grams (3 x 500 mg) PO BID 540 tabs 0RF 90 days Coding Level of Care Code Est Pt Level 4 (62152) Complex EM visit Add On G2211 Diagnoses 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 Other halfway (current) drug therapy Z79.899 Interstitial lung disease J84.9 Raynaud disease without gangrene I73.00 CPT Codes Coding - 88074 - Small joint: 89504 - Small Joint ([id number])
[2024-10-09 14:05] VITALS: BP 118/80; PULSE 78; O2SAT 99; BMI 27.8
== END 2024-10-09 14:46 | disposition home or self-care (01) ==
PROVIDERS: PCP Nurse Practitioner Acute Care; Visit Provider Internal Medicine Rheumatology
DX: D89.89 Other specified disorders involving the immune mechanism, not elsewhere classified (principal); M65.842 Other synovitis and tenosynovitis, left hand
CPT/HCPCS: 20600; 99214

== ENCOUNTER → 2024-10-09 13:51 | Outpatient (BNVA) | payer BC, SELFPAY | PROVIDERS: PCP Nurse Practitioner Acute Care; Visit Provider Internal Medicine Rheumatology | DX: M79.645 Pain in left finger(s) (principal); M25.442 Effusion, left hand; D89.89 Other specified disorders involving the immune mechanism, not elsewhere classified; J84.9 Interstitial pulmonary disease, unspecified; I73.00 Raynaud's syndrome without gangrene; Z79.899 Other long term (current) drug therapy | CPT/HCPCS: 20600; J2003; J3300 ==

== ENCOUNTER 2025-01-25 13:40 | Outpatient (AMB) | payer BC, SELFPAY ==
--- OUTSIDE RECORDS SUMMARY | 2024-08-01 11:00 | XMS_ITS ---
Author Organization [facility] [address] Address [address] [place] [address] Care Team Providers Care Department Helper Name Role Phone PHILIPP BARROW Unavailable [phone] Encounters Encounter Location Date Provider Diagnosis [facility] [address] [address] 08/01/2024 PHILIPP BARROW Plan Of Treatment Next Appt Details Provider Name:PHILIPP BARROW, 02/02/2025 12:30:00 PM, [address] [place], [address], Provider Name:PHILIPP BARROW, 04/09/2025 03:30:00 PM, [address], [address], [address], Progress Notes * Isabelle FRIENDOB:1965 (60 yo M)Acc No.[id number]:08/01/2024 Progress Notes Patient: Juni DEJESUS Provider: Edgar BARROW NP :1965 A ge:59 Y S ex:Male Date:08/01/2024 Address:[id number] Subjective: * Chief Complaints: * * Medical History: Objective: * Vitals: Assessment: Plan: * Treatment: * Images: Billing Information: * Visit Code: * Procedure Codes: Care Plan Details* * Electronic signature of SARANYA BARROW on 01/25/2025 at 01:44 PM EDT Sign off status: Pending * Provider: Edgar BARROW NP Date: 08/01/2024 Generated for Jamison bledsoe/Paty/Prasanth on: 0 01/25/2025 01:44 PM EDT
--- OUTSIDE RECORDS SUMMARY | 2025-01-25 13:44 | XMS_ITS | Clinical Summary ---
Author Organization [facility] Address [address] [place] [address] Care Team Providers Care Ice Cutter Name Role Phone Unavailable Primary Care Provider Unavailabl e Medications mycophenolate (Cellcept) 500 MG tablet Take 500 mg by mouth 2 times daily. Prescribed by Rheum Active Active Problems Problem Noted Date Diagnosed Date Raynaud's disease 09/15/2022 Antisynthetase syndrome 09/15/2022 Overview (09/15/2022): Followed by Dr Corbin Polyarthritis 09/15/2022 Interstitial lung disease 09/15/2022 Social History Tobacco Use Types Packs/Day Years Used Date Smoking Tobacco: Never Assessed Sex and Gender Information Value Date Recorded Sex Assigned at Male 05/17/2022 10:39 AM EDT Legal Sex Male 10:39 AM EDT Gender Identity Male 05/17/2022 10:39 AM EDT Sexual Orientation Choose not to disclose 2021 10:39 AM EDT Last Filed Vital Signs Vital Sign Reading Time Taken Comments Blood Pressure 122/82 03/19/2022 12:09 AM EDT Pulse 78 03/19/2022 12:09 AM EDT Temperature - - Respiratory Rate - - Oxygen Saturation - - Inhaled Oxygen Concentration - - Weight 92.3 kg (203 lb 6.4 oz) 03/19/2022 12:09 AM EDT Height 188 cm (6' 2 ) 03/19/2022 12:09 AM EDT Body Mass Index 26.11 03/19/2022 12:09 AM EDT Plan of Treatment Health Maintenance Due Date Last Done Comments CT Colonography 1967 Colonoscopy 1967 Colorectal Cancer Screening 1967 Depression Screening 1967 FIT DNA/Cologuard 1967 FIT 1967 FOBT 1967 HIV Screening 1967 Lipid Panel 1967 SDOH Screening 1967 Sigmoidoscopy 1967 Disability Screening 1967 COVID-19 Vaccine (#1) 01/02/1972 Alcohol/Substance Use Screening 1979 Tobacco Screening 1979 Hepatitis C Screening 1985 DTaP/Tdap/Td Vaccines (1 - Tdap) 1986 Hepatitis B Vaccines (1 of 3 - 19+ 3-dose series) 1986 Pneumococcal Vaccine: 50+ Ye ars (1 of 2 - PCV) 1986 Zoster Vaccines (1 of 2) 1986 Influenza Vaccine (#1) 2025 RSV Patients and Pa tients Aged 60 years or older (1 - 1-dose 75+ series) 2042 HIB Vaccines Aged Out No longer eligi ble based on patient's age to complete this topic HPV Vaccines Aged Out No longer eligi ble based on patient's age to complete this topic Hepatitis A Vaccines Aged Out No long er eligible based on patient's age to complete this topic IPV Vaccines Aged Out No longer eligi ble based on patient's age to complete this topic Meningococcal B Vaccine Aged Out No l onger eligible based on patient's age to complete this topic Meningococcal Vaccine Aged Out No dontae robbi eligible based on patient's age to complete this topic RSV under 20 months Aged Out No longe r eligible based on patient's age to complete this topic Rotavirus Vaccines Aged Out No longer eligible based on patient's age to complete this topic Insurance [facility] C3
--- OUTSIDE RECORDS SUMMARY | 2025-01-25 13:44 | XMS_ITS | Clinical Summary ---
Author Organization [facility] ity Address [address] [place] [address] Care Team Providers Care Grader Meat Name Role Phone Bonnie Adams MD Primary Care Provider [phone] Allergies No known active allergies Medications sulfADIAZINE 500 mg tablet Take 1 tablet (500 mg total) by mouth. Active acetaminophen (TYLENOL) 500 mg tablet Take 1 tablet (500 mg total) by mouth every 6 (six) hours if needed. Active mycophenolate (CELLCEPT) 500 mg tablet Take by mouth. Active predniSONE (DELTASONE) 10 mg tablet Take 1 tablet (10 mg total) by mouth. Active Active Problems Problem Noted Date Diagnosed Date Eosinophilic enteritis 03/04/2024 Colitis 03/04/2024 Social History Tobacco Use Types Packs/Day Years Used Date Smoking Tobacco: Never Assessed Sex and Gender Information Value Date Recorded Sex Assigned at Not on file Legal Sex Male 9:01 PM EST Gender Identity Not on file Sexual Orientation Not on file Obstetrics History Last Filed Vital Signs Vital Sign Reading Time Taken Comments Blood Pressure 98/60 02/29/2024 3:10 PM EDT Sit ting L Arm Pulse 89 02/29/2024 3:10 PM EDT Temperature - - Respiratory Rate - - Oxygen Saturation - - Inhaled Oxygen Concentration - - Weight 93 kg (205 lb) 02/29/2024 3:10 PM EDT Height 188 cm (6' 2 ) 02/29/2024 3:10 PM EDT Body Mass Index 26.32 02/29/2024 3:10 PM EDT Plan of Treatment Upcoming Encounters Date Type Department Care Team (Late st Contact Info) Description 03/07/2025 3:00 PM EDT Office Visit Gastroenterology - [address] [facility] [address] [place] [address] Stefani Hernandez PA [address] [facility] [address] [place] [address] Health Maintenance Due Date Last Done Comments COVID-19 Vaccine (#1) 01/02/1972 DTaP,Tdap,and Td Vaccines (1 - Tdap) 1986 Hepatitis B Vaccines (1 of 3 - 19+ 3-dose series) 1986 Pneumococcal Vaccine: 50+ Ye ars (1 of 2 - PCV) 1986 Zoster Vaccines (1 of 2) 1986 Cholesterol Screening (Lipid Panel) 08/12/2023 Depression Screening 08/12/2023 HIV Screening 08/12/2023 Hepatitis C Screening 08/12/2023 Social Influencers of Health Screening 08/12/2023 Influenza Vaccine (#1) 2025 Colorectal Cancer Screening: Colonoscopy 07/05/2033 HIB Vaccines Aged Out No longer eligi [...] on patient's age to complete this topic MMR Vaccines Aged Out No longer eligi ble based on patient's age to complete this topic Meningococcal ACWY Vaccine Aged Out N o longer eligible based on patient's age to complete this topic Meningococcal B Vaccine Aged Out No l onger eligible based on patient's age to complete this topic RSV Immunization Patients Un bigg 20 months Aged Out No longer eligible b ased on patient's age to complete this topic Varicella Vaccines Aged Out No longer eligible based on patient's age to complete this topic Care Teams Grader Meat Relationship Specialty Start Date End Date Bonnie Adams MD PCP - General 11/02/22
--- OUTSIDE RECORDS SUMMARY | 2025-01-25 13:44 | XMS_ITS | Clinical Summary ---
Author Organization [facility] Address [address] [place] [address] Care Team Providers Care Death Claim Clerk Name Role Phone Bonnie Adams MD Primary Care Provider [phone] Allergies No known active allergies Medications Medication Sig Dispensed Refills Start Date End Date Status mycophenolate (CELLCEPT) 500 MG tablet Take 1 tablet (500 mg total) by mouth 2 (two) times a day. 0 11/23/2022 Active traMADol (ULTRAM) 50 MG tablet Take 50 mg by mouth every 6 (six) hours as needed for pain. 0 Active predniSONE (DELTASONE) 5 mg tablet Take by mouth. 0 Active Active Problems No known active problems Social History Tobacco Use Types Packs/Day Years Used Date Smoking Tobacco: Never Assessed Sex and Gender Information Value Date Recorded Sex Assigned at Male 11/02/2022 1:27 PM EDT Gender Identity Not on file Sexual Orientation Not on file Job Start Date Occupation Industry Not on file Not on file Not on file Last Filed Vital Signs Vital Sign Reading Time Taken Comments Blood Pressure 130/83 04/27/2023 3:04 PM EDT Pulse 93 04/27/2023 3:04 PM EDT Temperature 36.7 C (98.1 F) 04/27/2023 3:04 PM EDT Respiratory Rate - - Oxygen Saturation 95% 04/27/2023 3:04 PM EDT Inhaled Oxygen Concentration - - Weight 92.5 kg (204 lb) 04/27/2023 3:04 PM EDT Height 180.3 cm (5' 11 ) 04/27/2023 3:04 PM EDT Body Mass Index 28.45 04/27/2023 3:04 PM EDT Plan of Treatment Health Maintenance Due Date Last Done Comments Hepatitis B Vaccines (1 of 3 - 3-dose series) 1967 Hepatitis C Screening 1967 COVID-19 Vaccine (#1) 01/02/1972 Pneumococcal Vaccine (1 of 2 - PCV) 1973 Depression Screening 1979 Preventative Health Evaluation 1985 DTap / Tdap / Td (1 - Tdap) 1986 Shingrix-Zoster Vaccine (1 of 2) 1986 Colon Cancer Screening (Colonoscopy) 01/02/2012 Influenza Vaccine (#1) 2025 RSV Ped < 20 months Aged Out No longe r eligible based on patient's age to complete this topic Care Teams Death Claim Clerk Relationship Specialty Start Date End Date Bonnie Adams MD [address] [place] [address] PCP - General Internal Medicine 11/02/22
--- NOTE | 2025-01-25 13:51 | A.OFFVIS_ITS ---
Vital Signs 01/25/25 13:56 Height 6 ft 2 in Weight 203 lb 0.732 oz BMI 26.1 BP 120/62 Blood Pressure Location Lt brachial Position Sitting Pulse 96 Pulse Source Pulse Oximeter Pulse Oximetry (%) 98 Oxygen Delivery Method Room Air Intake Visit Reasons: 3 Months Intake Note: Patient presents for follow up on his lungs. Patient needs refills on both his medications today. Allergies No Known Allergies (No Known Allergies*) Allergy (Verified 01/25/25 14:01) HPI HPI 3 Months: Details: Swelling in right hand after moeing the lawn No dyspnea or dysphagia or rash Lost weight 13lb He has burning sensation in both feet. Worse at night. Denies discoloration of toes when he has burning sensation. He recently had pulmonary function tests and we will be following up with lactation specialist. [facility] Medical History Raynaud disease Surgical History H/O removal of testicle Physical Exam Vital Signs: Last Vital Signs Pulse 96 01/25/25 13:56 BP 120/62 01/25/25 13:56 Pulse Ox 98 01/25/25 13:56 Oxygen Delivery Method Room Air 01/25/25 13:56 BMI result Body Mass Index 26.1 Const Other: General: Comfortable CVS: RRR Respiratory: Inspiratory crackles mid lung zones Skin: No lesions seen, no discoloration of fingertips or toes. MSK: Tender right MCPs, and PIPs. He has synovitis of right 4th and 5th PIP. Normal range of motion of upper extremities and lower extremities. Normal range of motion of lower extremities. Assessment & Plan Assessment & Plan (1) Antisynthetase syndrome: Comment: He has developed synovitis of right 4th and 5th PIP with polyarthralgias involving right hand after increased activity with yard work. 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 Mycophenolate mofetil started 07/06/2022 to present. Sulfasalazine started 07/06/2023 to present. He has required courses of prednisone to control inflammatory arthritis. Code(s): D89.89 - Other specified disorders involving the immune mechanism, not elsewhere classified Category: Medical Plan: Prednisone course prescribed. If joint swelling does not resolve, he will call office Labs for drug monitoring on high-risk medication due today Continue sulfasalazine 1500 mg twice a day Continue mycophenolate mofetil 1500 mg twice a day Return to clinic in 3 months He will be following up with pulmonologists Dr. Berg for ILD monitoring Requesting results of recent echo from [facility] (2) Interstitial lung disease: Comment: Associated with antisynthetase syndrome. Patient reports previous testing reveals improvement compared to imaging and PFTs in the past. Mycophenolate mofetil is likely contributing to benefit. Code(s): J84.9 - Interstitial pulmonary disease, unspecified Category: Medical Plan: Continue mycophenolate mofetil 1500 mg twice a day Follow-up with Dr. Berg [facility] for echocardiogram and PFTs Echocardiogram results requested Return to clinic in 3 months (3) Other ad terminal makeup operator (current) drug therapy: Code(s): Z79.899 - Other ad terminal makeup operator (current) drug therapy Category: Medical Plan: See above (4) Paresthesia of foot, bilateral: Comment: He was diagnosed with prediabetes. It is rare for prediabetes to present with peripheral neuropathy. Code(s): R20.2 - Paresthesia of skin Category: Medical Plan: EMG bilateral lower extremities ordered (5) Prediabetes: Code(s): R73.03 - Prediabetes Category: Medical Plan: See above (6) Raynaud disease without gangrene: Comment: Controlled with conservative management Rheumatology history: Amlodipine caused depression Code(s): I73.00 - Raynaud's syndrome without gangrene Category: Medical Plan: Continue conservative management Orders: Orders Complete Blood Count Man Dif Today D89.89 - Other specified disorders involving the immune mechanism, not elsewhere classified, Z79.899 - Other ad terminal makeup operator (current) drug therapy Aspartate Amino Transferase Today D89.89 - Other specified disorders involving the immune mechanism, not elsewhere classified, Z79.899 - Other ad terminal makeup operator (current) drug therapy Creatinine Today D89.89 - Other specified disorders involving the immune mechanism, not elsewhere classified, Z79.899 - Other ad terminal makeup operator (current) drug therapy NE nerve conduction velocity Today R20.2 - Paresthesia of skin, R73.03 - P rediabetes NE electromyogram (EMG) Today R20.2 - Paresthesia of skin, R73.03 - Prediabetes Absolute Neutrophil Count Today D89.89 - Other specified disorders involving the immune mechanism, not elsewhere classified, Z79.899 - Other mcc (current) drug therapy C Reactive Protein Today D8.89 - Other specified disorders involving the immune mechanism, not elsewhere classified, Z79.899 - Other ad terminal makeup operator (current) drug therapy Erythrocyte Sedimentation Rate Today D8.89 - Other specified disorders involving the immune mechanism, not elsewhere classified, Z79.89 - Other mcc (current) drug therapy Medications: New cholecalciferol (vitamin D3) 1,250 mcg PO QWEEK 12 tabs 0RF 12 weeks prednisone Take 4 tablets daily 3 days, 3 tablets daily 3 days, 2 tablets daily 3 days, 1 tablets daily 3 days, then stop. Take prednisone food. 5 mg PO DIRECTED 30 tabs 0RF Refilled sulfasalazine 1.5 grams (3 x 500 mg) PO BID 540 tabs 0RF 90 days mycophenolate mofetil 1.5 grams (3 x 500 mg) PO BID 540 tabs 0RF 90 days Coding Level of Care Code Est Pt Level 4 (19721) Complex EM visit Add On G2211 Diagnoses 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 Interstitial lung disease J84.9 Other mcc (current) drug therapy Z79.89 Paresthesia of foot, bilateral R20.2 Prediabetes R73.03 Raynaud disease without gangrene I73.00
[2025-01-25 13:56] VITALS: BP 120/62; PULSE 96; O2SAT 98; BMI 26.1
== END 2025-01-25 14:52 | disposition home or self-care (01) ==
LOC: HO.RHES 13:40
PROVIDERS: PCP Nurse Practitioner Acute Care; Visit Provider Internal Medicine Rheumatology
DX: D89.89 Other specified disorders involving the immune mechanism, not elsewhere classified (principal); J84.9 Interstitial pulmonary disease, unspecified; Z79.899 Other long term (current) drug therapy; R20.2 Paresthesia of skin; R73.03 Prediabetes; I73.00 Raynaud's syndrome without gangrene
CPT/HCPCS: 99214

== ENCOUNTER 2025-04-19 15:04 | Outpatient (REF) | payer BC, SELFPAY ==
--- OUTSIDE RECORDS SUMMARY | 2024-08-01 11:00 | XMS_ITS ---
Author Organization [facility] [address] Address [address] [place] [address] Care Team Providers Care Sox Analyst Name Role Phone PHILIPP BARROW Unavailable [phone] Encounters Encounter Location Date Provider Diagnosis [facility] [address] [address] 08/01/2024 PHILIPP BARROW Plan Of Treatment Next Appt Details Provider Name:PHILIPP BARROW, 07/30/2025 03:30:00 PM, [address], [facility], [place], [address], Progress Notes * Isabelle FRIENDOB:1965 (60 yo M)Acc No.[id number]:08/01/2024 Progress Notes Patient: Juni DEJESUS Provider: Edgar BARROW NP :1965 A ge:59 Y S ex:Male Date:08/01/2024 Address:[address] [id number] Subjective: * Chief Complaints: * * Medical History: Objective: * Vitals: Assessment: Plan: * Treatment: * Images: Billing Information: * Visit Code: * Procedure Codes: Care Plan Details* * Electronic signature of SARANYA BARROW on 04/19/2025 at 03:09 PM EDT Sign off status: Pending * Provider: Edgar BARROW NP Date: 0 08/01/2024 Generated for Jamison bledsoe/Paty/Prasanth on: 1 03:09 PM EDT
--- OUTSIDE RECORDS SUMMARY | 2025-04-19 15:09 | XMS_ITS | Clinical Summary ---
Author Organization [facility] Address [address] [facility] [facility] [address] [place] [address] Care Team Providers Care Pack Changer Name Role Phone Unavailable Primary Care Provider Unavailabl e Medications mycophenolate (Cellcept) 500 MG tablet Take 500 mg by mouth 2 times daily. Prescribed by Rheum Active Active Problems Problem Noted Date Diagnosed Date Raynaud's disease 09/15/2022 Antisynthetase syndrome 09/15/2022 Overview (09/15/2022): Followed by Dr Corbin Polyarthritis 09/15/2022 Interstitial lung disease (CMS/HCC) 09/15/2022 Social History Tobacco Use Types Packs/Day [...] patient's age to complete this topic Insurance [facility] C3
--- OUTSIDE RECORDS SUMMARY | 2025-04-19 15:09 | XMS_ITS | Patient Health Record ---
[facility] Organization [facility] Address [address] [place] [address] Care Team Providers Care Chairlift Operator Name Role Phone PHILIPP BARROW Unavailable [phone] Allergies No Known Allergies Reason For Referral No Information Medications Medication SIG (Take, Route, Frequency, Duration) Notes Start Date End Date Status Mycophenolate Mofetil 500 MG as need ora lly; Duration: 30 days Active Tylenol Active sulfaSALAzine 500 MG 1 tablet Orally Onc e a day Active Social History Tobacco Use: Social History Observation Description Date Details (start date - stop date) Never Smoker NA - NA Tobacco Use/Smoking Question Answer Notes Are you a nonsmoker Alcohol Screen (Audit-C) Question Answer Notes Did you have a drink containing alcohol in the p ast year? No Points 0 Interpretation Negative Problems Problem Type SNOMED Code ICD Code Onset Dates Problem Status W/U Status Risk Notes Problem Essential hypertension (34065917) Essential (primary) hypertension (I10) Active confirmed Problem Reduced libido (4113776) Decreased libido (R68.82) Active confirmed Problem Lipid screening (592494652) Encounter for screening for lipoid disorders (Z13.220) Active confirmed Problem Adult health examination (422703673) Adult general medical exam (Z00.00) Active confirmed Problem Vitamin D deficiency (24628918) Vitamin D deficiency (E55.9) Active confirmed Problem Prediabetes (063009691) Pre-diabetes (R73.03) Active confirmed Problem Diabetes mellitus screening (839557512) Diabetes mellitus screening (Z13.1) Active confirmed Problem Raynaud's disease (409129088) Raynaud's disease without gangrene (I73.00) Active confirmed Problem Avitaminosis D (28906409) Avitaminosis D (E55.9) Active confirmed Problem Endocrine/metabolic screening (320307123) Encounter for screening for endocrine disorder (Z13.29) Active confirmed Problem Screening for malignant neoplasm of prostate (900031184) Encounter for prostate cancer screening (Z12.5) Active confirmed Problem Immunodeficiency disorder (699430362) Immunosuppressed status (D84.9) Active confirmed Problem 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 Vital Signs Heart Rate 91 /min 04/09/2025 Oximetry 96 % 04/09/2025 Blood pressure diastolic 82 mm Hg 04/09/2025 Height 73 in 04/09/2025 Blood pressure systolic 122 mm Hg 04/09/2025 Weight 208 lbs 04/09/2025 BMI 27.44 kg/m2 04/09/2025 Encounters Encounter Location Date Provider Diagnosis [facility] [address] [address] 09/12/2024 PHILIPP BORHOT Essential (primary) hypertension I10 ; 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 ; Immunosuppressed status D84.9 ; Raynaud's disease without gangrene I73.00 ; History of venous thromboembolism Z86.718 ; Decreased sex drive R68.82 and Decreased libido R68.82 [facility] [address] [address] 12/11/2024 PHILIPP BORHOT Essential (primary) hypertension I10 ; Annual physical exam Z00.00 ; 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 ; Immunosuppressed status D84.9 ; Raynaud's disease without gangrene I73.00 ; History of venous thromboembolism Z86.718 ; Decreased sex drive R68.82 ; Decreased libido R68.82 and Encounter for examination of blood pressure without abnormal findings Z01.30 [facility] [address] [address] 04/09/2025 PHILIPP BORHOT Essential (primary) hypertension I10 ; 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 ; Immunosuppressed status D84.9 ; Raynaud's disease without gangrene I73.00 ; History of venous thromboembolism Z86.718 ; Decreased sex drive R68.82 ; Decreased libido R68.82 and Encounter for examination of blood pressure without abnormal findings Z01.30 [facility] [address] [facility] [address] [place] [address] 09/19/2024 PHILIPP BARROW [facility] [address] [facility] [address] [place] [address] 09/27/2024 PHILIPP BARROW Assessments Encounter Date Diagnosis (ICD Code) Assessment Notes Treatment Notes Treatment Clinical Notes Section Notes 09/12/2024 Essential (primary) hypertension (ICD-10 - I10) Acute Concerns/Problem List: 09/12/2024 Discussed decreased Sex drive, libido. Also check other comprehensive labs Will send for hypogonadism work up and follow up. Doing well with Immunosuppressive reg. Joint and chest symptoms have improved. Following with Rhe[facility] Pulm. CPE in the summer Of note, some information is being carried forward from prior records for informational purposes only and is being cited so that efficiency, safety and quality of the patient's care is not compromised This note was prepared using voice recognition software and direct typing Please excuse inadvertent income tax adjuster or typing errors, or uncorrected word substitutions Although every attempt has been made by the provider to proofread this document, occasional misspellings and typographical errors may still be present Due to the previous pandemic, and the use of personal protective equipment (PPE) This may decrease voice recognition accuracy Inadvertent income tax adjuster errors may occur 12/11/2024 Essential (primary) hypertension (ICD-10 - I10) #Weight Management 12/11/2024 Requested follow-up on labs from [facility] including hypogonadism workup Discussed recent echo findings Mostly looks well with exception of minimally elevated pulmonary artery pressure Discussed that if he goes on PDE 4 this would help with this Doing well with Immunosuppressive reg. Of note, some information is being carried forward from prior records for informational purposes only and is being cited so that efficiency, safety and quality of the patient's care is not compromised This note was prepared using voice recognition software and direct typing Please excuse inadvertent income tax adjuster or typing errors, or uncorrected word substitutions Although every attempt has been made by the provider to proofread this document, occasional misspellings and typographical errors may still be present Due to the previous pandemic, and the use of personal protective equipment (PPE) This may decrease voice recognition accuracy Inadvertent income tax adjuster errors may occur 12/11/2024 Annual physical exam (ICD-10 - Z00.00) #Weight Management 12/11/2024 Requested follow-up on labs from [facility] including hypogonadism workup Discussed recent echo findings Mostly looks well with exception of minimally elevated pulmonary artery pressure Discussed that if he goes on PDE 4 this would help with this Doing well with Immunosuppressive reg. Of note, some information is being carried forward from prior records for informational purposes only and is being cited so that efficiency, safety and quality of the patient's care is not compromised This note was prepared using voice recognition software and direct typing Please excuse inadvertent income tax adjuster or typing errors, or uncorrected word substitutions Although every attempt has been made by the provider to proofread this document, occasional misspellings and typographical errors may still be present Due to the previous pandemic, and the use of personal protective equipment (PPE) This may decrease voice recognition accuracy Inadvertent income tax adjuster errors may occur 04/09/2025 Essential (primary) hypertension (ICD-10 - I10) Acute Concerns/Problem List: 04/09/2025 Chronic conditions are stable Will see him back in 3 months Of note, some information is being carried forward from prior records for informational purposes only and is being cited so that efficiency, safety and quality of the patient's care is not compromised This note was prepared using voice recognition software and direct typing Please excuse inadvertent income tax adjuster or typing errors, or uncorrected word substitutions Although every attempt has been made by the provider to proofread this document, occasional misspellings and typographical errors may still be present Due to the previous pandemic, and the use of personal protective equipment (PPE) This may decrease voice recognition accuracy Inadvertent income tax adjuster errors may occur 12/11/2024 Antisynthetase syndrome (ICD-10 - D89.89) #Weight Management 12/11/2024 Requested follow-up on labs from [facility] including hypogonadism workup Discussed recent echo findings Mostly looks well with exception of minimally elevated pulmonary artery pressure Discussed that if he goes on PDE 4 this would help with this Doing well with Immunosuppressive reg. Of note, some information is being carried forward from prior records for informational purposes only and is being cited so that efficiency, safety and quality of the patient's care is not compromised This note was prepared using voice recognition software and direct typing Please excuse inadvertent income tax adjuster or typing errors, or uncorrected word substitutions Although every attempt has been made by the provider to proofread this document, occasional misspellings and typographical errors may still be present Due to the previous pandemic, and the use of personal protective equipment (PPE) This may decrease voice recognition accuracy Inadvertent income tax adjuster errors may occur 09/12/2024 Antisynthetase syndrome (ICD-10 - D89.89) Acute Concerns/Problem List: 09/12/2024 Discussed decreased Sex drive, libido. Also check other comprehensive labs Will send for hypogonadism work up and follow up. Doing well with Immunosuppressive reg. Joint and chest symptoms have improved. Following with Rheum and Pulm. CPE in the summer Of note, some information is being carried forward from prior records for informational purposes only and is being cited so that efficiency, safety and quality of the patient's care is not compromised This note was prepared using voice recognition software and direct typing Please excuse inadvertent income tax adjuster or typing errors, or uncorrected word substitutions Although every attempt has been made by the provider to proofread this document, occasional misspellings and typographical errors may still be present Due to the previous pandemic, and the use of personal protective equipment (PPE) This may decrease voice recognition accuracy Inadvertent income tax adjuster errors may occur 04/09/2025 Antisynthetase syndrome (ICD-10 - D89.89) Acute Concerns/Problem List: 04/09/2025 Chronic conditions are stable Will see him back in 3 months Of note, some information is being carried forward from prior records for informational purposes only and is being cited so that efficiency, safety and quality of the patient's care is not compromised This note was prepared using voice recognition software and direct typing Please excuse inadvertent income tax adjuster or typing errors, or uncorrected word substitutions Although every attempt has been made by the provider to proofread this document, occasional misspellings and typographical errors may still be present Due to the previous pandemic, and the use of personal protective equipment (PPE) This may decrease voice recognition accuracy Inadvertent income tax adjuster errors may occur 12/11/2024 Immunosuppressed status (ICD-10 - D84.9) #Weight Management 12/11/2024 Requested follow-up on labs from [facility] including hypogonadism workup Discussed recent echo findings Mostly looks well with exception of minimally elevated pulmonary artery pressure Discussed that if he goes on PDE 4 this would help with this Doing well with Immunosuppressive reg. Of note, some information is being carried forward from prior records for informational purposes only and is being cited so that efficiency, safety and quality of the patient's care is not compromised This note was prepared using voice recognition software and direct typing Please excuse inadvertent income tax adjuster or typing errors, or uncorrected word substitutions Although every attempt has been made by the provider to proofread this document, occasional misspellings and typographical errors may still be present Due to the previous pandemic, and the use of personal protective equipment (PPE) This may decrease voice recognition accuracy Inadvertent income tax adjuster errors may occur 04/09/2025 Immunosuppressed status (ICD-10 - D84.9) Acute Concerns/Problem List: 04/09/2025 Chronic conditions are stable Will see him back in 3 months Of note, some information is being carried forward from prior records for informational purposes only and is being cited so that efficiency, safety and quality of the patient's care is not compromised This note was prepared using voice recognition software and direct typing Please excuse inadvertent income tax adjuster or typing errors, or uncorrected word substitutions Although every attempt has been made by the provider to proofread this document, occasional misspellings and typographical errors may still be present Due to the previous pandemic, and the use of personal protective equipment (PPE) This may decrease voice recognition accuracy Inadvertent income tax adjuster errors may occur 09/12/2024 Immunosuppressed status (ICD-10 - D84.9) Acute Concerns/Problem List: 09/12/2024 Discussed decreased Sex drive, libido. Also check other comprehensive labs Will send for hypogonadism work up and follow up. Doing well with Immunosuppressive reg. Joint and chest symptoms have improved. Following with Rheum and Pulm. CPE in the summer Of note, some information is being carried forward from prior records for informational purposes only and is being cited so that efficiency, safety and quality of the patient's care is not compromised This note was prepared using voice recognition software and direct typing Please excuse inadvertent income tax adjuster or typing errors, or uncorrected word substitutions Although every attempt has been made by the provider to proofread this document, occasional misspellings and typographical errors may still be present Due to the previous pandemic, and the use of personal protective equipment (PPE) This may decrease voice recognition accuracy Inadvertent income tax adjuster errors may occur 09/12/2024 Raynaud's disease without gangrene (ICD-10 - I73.00) Acute Concerns/Problem List: 09/12/2024 Discussed decreased Sex drive, libido. Also check other comprehensive labs Will send for hypogonadism work up and follow up. Doing well with Immunosuppressive reg. Joint and chest symptoms have improved. Following with Rheum and Pulm. CPE in the summer Of note, some information is being carried forward from prior records for informational purposes only and is being cited so that efficiency, safety and quality of the patient's care is not compromised This note was prepared using voice recognition software and direct typing Please excuse inadvertent income tax adjuster or typing errors, or uncorrected word substitutions Although every attempt has been made by the provider to proofread this document, occasional misspellings and typographical errors may still be present Due to the previous pandemic, and the use of personal protective equipment (PPE) This may decrease voice recognition accuracy Inadvertent income tax adjuster errors may occur 12/11/2024 Raynaud's disease without gangrene (ICD-10 - I73.00) #Weight Management 12/11/2024 Requested follow-up on labs from [facility] including hypogonadism workup Discussed recent echo findings Mostly looks well with exception of minimally elevated pulmonary artery pressure Discussed that if he goes on PDE 4 this would help with this Doing well with Immunosuppressive reg. Of note, some information is being carried forward from prior records for informational purposes only and is being cited so that efficiency, safety and quality of the patient's care is not compromised This note was prepared using voice recognition software and direct typing Please excuse inadvertent income tax adjuster or typing errors, or uncorrected word substitutions Although every attempt has been made by the provider to proofread this document, occasional misspellings and typographical errors may still be present Due to the previous pandemic, and the use of personal protective equipment (PPE) This may decrease voice recognition accuracy Inadvertent income tax adjuster errors may occur 04/09/2025 Raynaud's disease without gangrene (ICD-10 - I73.00) Acute Concerns/Problem List: 04/09/2025 Chronic conditions are stable Will see him back in 3 months Of note, some information is being carried forward from prior records for informational purposes only and is being cited so that efficiency, safety and quality of the patient's care is not compromised This note was prepared using voice recognition software and direct typing Please excuse inadvertent income tax adjuster or typing errors, or uncorrected word substitutions Although every attempt has been made by the provider to proofread this document, occasional misspellings and typographical errors may still be present Due to the previous pandemic, and the use of personal protective equipment (PPE) This may decrease voice recognition accuracy Inadvertent income tax adjuster errors may occur 04/09/2025 History of venous thromboembolism (ICD-10 - Z86.718) Acute Concerns/Problem List: 04/09/2025 Chronic conditions are stable Will see him back in 3 months Of note, some information is being carried forward from prior records for informational purposes only and is being cited so that efficiency, safety and quality of the patient's care is not compromised This note was prepared using voice recognition software and direct typing Please excuse inadvertent income tax adjuster or typing errors, or uncorrected word substitutions Although every attempt has been made by the provider to proofread this document, occasional misspellings and typographical errors may still be present Due to the previous pandemic, and the use of personal protective equipment (PPE) This may decrease voice recognition accuracy Inadvertent income tax adjuster errors may occur 12/11/2024 History of venous thromboembolism (ICD-10 - Z86.718) #Weight Management 12/11/2024 Requested follow-up on labs from [facility] including hypogonadism workup Discussed recent echo findings Mostly looks well with exception of minimally elevated pulmonary artery pressure Discussed that if he goes on PDE 4 this would help with this Doing well with Immunosuppressive reg. Of note, some information is being carried forward from prior records for informational purposes only and is being cited so that efficiency, safety and quality of the patient's care is not compromised This note was prepared using voice recognition software and direct typing Please excuse inadvertent income tax adjuster or typing errors, or uncorrected word substitutions Although every attempt has been made by the provider to proofread this document, occasional misspellings and typographical errors may still be present Due to the previous pandemic, and the use of personal protective equipment (PPE) This may decrease voice recognition accuracy Inadvertent income tax adjuster errors may occur 09/12/2024 History of venous thromboembolism (ICD-10 - Z86.718) Acute Concerns/Problem List: 09/12/2024 Discussed decreased Sex drive, libido. Also check other comprehensive labs Will send for hypogonadism work up and follow up. Doing well with Immunosuppressive reg. Joint and chest symptoms have improved. Following with Rheum and Pulm. CPE in the summer Of note, some information is being carried forward from prior records for informational purposes only and is being cited so that efficiency, safety and quality of the patient's care is not compromised This note was prepared using voice recognition software and direct typing Please excuse inadvertent income tax adjuster or typing errors, or uncorrected word substitutions Although every attempt has been made by the provider to proofread this document, occasional misspellings and typographical errors may still be present Due to the previous pandemic, and the use of personal protective equipment (PPE) This may decrease voice recognition accuracy Inadvertent income tax adjuster errors may occur 09/12/2024 Decreased sex drive (ICD-10 - R68.82) Acute Concerns/Problem List: 09/12/2024 Discussed decreased Sex drive, libido. Also check other comprehensive labs Will send for hypogonadism work up and follow up. Doing well with Immunosuppressive reg. Joint and chest symptoms have improved. Following with Rheum and Pulm. CPE in the summer Of note, some information is being carried forward from prior records for informational purposes only and is being cited so that efficiency, safety and quality of the patient's care is not compromised This note was prepared using voice recognition software and direct typing Please excuse inadvertent income tax adjuster or typing errors, or uncorrected word substitutions Although every attempt has been made by the provider to proofread this document, occasional misspellings and typographical errors may still be present Due to the previous pandemic, and the use of personal protective equipment (PPE) This may decrease voice recognition accuracy Inadvertent income tax adjuster errors may occur 12/11/2024 Decreased sex drive (ICD-10 - R68.82) #Weight Management 12/11/2024 Requested follow-up on labs from [facility] including hypogonadism workup Discussed recent echo findings Mostly looks well with exception of minimally elevated pulmonary artery pressure Discussed that if he goes on PDE 4 this would help with this Doing well with Immunosuppressive reg. Of note, some information is being carried forward from prior records for informational purposes only and is being cited so that efficiency, safety and quality of the patient's care is not compromised This note was prepared using voice recognition software and direct typing Please excuse inadvertent income tax adjuster or typing errors, or uncorrected word substitutions Although every attempt has been made by the provider to proofread this document, occasional misspellings and typographical errors may still be present Due to the previous pandemic, and the use of personal protective equipment (PPE) This may decrease voice recognition accuracy Inadvertent income tax adjuster errors may occur 04/09/2025 Decreased sex drive (ICD-10 - R68.82) Acute Concerns/Problem List: 04/09/2025 Chronic conditions are stable Will see him back in 3 months Of note, some information is being carried forward from prior records for informational purposes only and is being cited so that efficiency, safety and quality of the patient's care is not compromised This note was prepared using voice recognition software and direct typing Please excuse inadvertent income tax adjuster or typing errors, or uncorrected word substitutions Although every attempt has been made by the provider to proofread this document, occasional misspellings and typographical errors may still be present Due to the previous pandemic, and the use of personal protective equipment (PPE) This may decrease voice recognition accuracy Inadvertent income tax adjuster errors may occur 09/12/2024 Decreased libido (ICD-10 - R68.82) Acute Concerns/Problem List: 09/12/2024 Discussed decreased Sex drive, libido. Also check other comprehensive labs Will send for hypogonadism work up and follow up. Doing well with Immunosuppressive reg. Joint and chest symptoms have improved. Following with Rheum and Pulm. CPE in the summer Of note, some information is being carried forward from prior records for informational purposes only and is being cited so that efficiency, safety and quality of the patient's care is not compromised This note was prepared using voice recognition software and direct typing Please excuse inadvertent income tax adjuster or typing errors, or uncorrected word substitutions Although every attempt has been made by the provider to proofread this document, occasional misspellings and typographical errors may still be present Due to the previous pandemic, and the use of personal protective equipment (PPE) This may decrease voice recognition accuracy Inadvertent income tax adjuster errors may occur 04/09/2025 Decreased libido (ICD-10 - R68.82) Acute Concerns/Problem List: 04/09/2025 Chronic conditions are stable Will see him back in 3 months Of note, some information is being carried forward from prior records for informational purposes only and is being cited so that efficiency, safety and quality of the patient's care is not compromised This note was prepared using voice recognition software and direct typing Please excuse inadvertent income tax adjuster or typing errors, or uncorrected word substitutions Although every attempt has been made by the provider to proofread this document, occasional misspellings and typographical errors may still be present Due to the previous pandemic, and the use of personal protective equipment (PPE) This may decrease voice recognition accuracy Inadvertent income tax adjuster errors may occur 12/11/2024 Decreased libido (ICD-10 - R68.82) #Weight Management 12/11/2024 Requested follow-up on labs from [facility] including hypogonadism workup Discussed recent echo findings Mostly looks well with exception of minimally elevated pulmonary artery pressure Discussed that if he goes on PDE 4 this would help with this Doing well with Immunosuppressive reg. Of note, some information is being carried forward from prior records for informational purposes only and is being cited so that efficiency, safety and quality of the patient's care is not compromised This note was prepared using voice recognition software and direct typing Please excuse inadvertent income tax adjuster or typing errors, or uncorrected word substitutions Although every attempt has been made by the provider to proofread this document, occasional misspellings and typographical errors may still be present Due to the previous pandemic, and the use of personal protective equipment (PPE) This may decrease voice recognition accuracy Inadvertent income tax adjuster errors may occur 12/11/2024 Encounter for examination of blood pressure without abnormal findings (ICD-10 - Z01.30) #Weight Management 12/11/2024 Requested follow-up on labs from [facility] including hypogonadism workup Discussed recent echo findings Mostly looks well with exception of minimally elevated pulmonary artery pressure Discussed that if he goes on PDE 4 this would help with this Doing well with Immunosuppressive reg. Of note, some information is being carried forward from prior records for informational purposes only and is being cited so that efficiency, safety and quality of the patient's care is not compromised This note was prepared using voice recognition software and direct typing Please excuse inadvertent income tax adjuster or typing errors, or uncorrected word substitutions Although every attempt has been made by the provider to proofread this document, occasional misspellings and typographical errors may still be present Due to the previous pandemic, and the use of personal protective equipment (PPE) This may decrease voice recognition accuracy Inadvertent income tax adjuster errors may occur 04/09/2025 Encounter for examination of blood pressure without abnormal findings (ICD-10 - Z01.30) Acute Concerns/Problem List: 04/09/2025 Chronic conditions are stable Will see him back in 3 months Of note, some information is being carried forward from prior records for informational purposes only and is being cited so that efficiency, safety and quality of the patient's care is not compromised This note was prepared using voice recognition software and direct typing Please excuse inadvertent income tax adjuster or typing errors, or uncorrected word substitutions Although every attempt has been made by the provider to proofread this document, occasional misspellings and typographical errors may still be present Due to the previous pandemic, and the use of personal protective equipment (PPE) This may decrease voice recognition accuracy Inadvertent income tax adjuster errors may occur Plan Of Treatment Pending Test Test Name Order Date 25OH [...] W/REFLEX CULTURE 12/08/2023 URINALYSIS W/REFLEX CULTURE 07/07/2023 LIPID PANEL, STANDARD 09/12/2024 FSH AND LH 09/12/2024 COMPREHENSIVE METABOLIC PANEL 09/12/2024 CBC (INCLUDES DIFF/PLT) 09/12/2024 URINALYSIS, COMPLETE 09/12/2024 HEMOGLOBIN A1c 09/12/2024 PSA (FREE AND TOTAL) 09/12/2024 TSH 09/12/2024 VITAMIN D,25-OH,TOTAL,IA 09/12/2024 TESTOSTERONE, FREE (DIALYSIS) AND TOTAL, MS 09/12/2024 SEX HORMONE BINDING GLOBULIN 09/12/2024 Future Test Test Name Order Date 25OH VITAMIN D 09/29/2022 CBC (COMPLETE BLOOD COUNT) WITH DIFF COMPREHENSIVE METABOLIC PANEL 09/29/2022 HEMOGLOBIN A1C 09/29/2022 LIPID PANEL 09/29/2022 PSA, SCREEN 09/29/2022 TSH WITH REFLEX TO FT4 09/29/2022 URINALYSIS W/REFLEX CULTURE 09/29/2022 Next Appt Details Provider Name:PHILIPP BARROW, 07/30/2025 03:30:00 PM, [address], [facility], [place], [address], Insurance Providers Payer Name Payer Address Payer Phone Subscriber Number Group Number Insured Name Patient Relationship to Insured Coverage Start Date Coverage End Date [facility] [address] [place] [address] [id number] Juni Friend Self - patient is the insured Medical (General) History Medical History History ICD Code raynauds syndrome Surgical History Surgery Date(Month/Year) vasectomy removal of left testicle
--- OUTSIDE RECORDS SUMMARY | 2025-04-19 15:09 | XMS_ITS | Clinical Summary ---
Author Organization [facility] Address [address] [place] [address] Care Team Providers Care Sole Leveling Machine Operator Name Role Phone Bonnie Adams MD Primary Care Provider [phone] Allergies No known active allergies Medications Medication [...] age to complete this topic Care Teams Sole Leveling Machine Operator Relationship Specialty Start Date End Date Bonnie Adams MD [address] [place] [address] PCP - General Internal Medicine 11/02/22
--- OUTSIDE RECORDS SUMMARY | 2025-04-19 15:09 | XMS_ITS | Clinical Summary ---
Author Organization [address] [facility] Address [address] [place] [address] Phone Care Team Providers Care Oracle Etl Developer Name Role Phone Bonnie Adams MD Primary Care Provider [phone] Allergies No known active allergies Medications sulfADIAZINE [...] Upcoming Encounters Date Type Department Care Team ([facility] st Contact Info) Description 06/20/2025 3:20 PM EST Office Visit Gastroenterology - [place] [address] [facility] [address] [place] [address] Stefani Hernandez PA [address] [facility] [address] [place] [address] Health Maintenance Due Date Last Done Comments COVID-19 Vaccine (#1) 01/02/1972 DTaP,Tdap,and Td Vaccines (1 - Tdap) 1986 Hepatitis B Vaccines (1 of 3 - 19+ 3-dose series) 1986 Pneumococcal Vaccine: 50+ Ye ars (1 of 2 - PCV) 1986 Zoster Vaccines (1 of 2) 1986 Cholesterol Screening (Lipid Panel) 08/12/2023 HIV Screening 08/12/2023 Hepatitis C Screening 08/12/2023 Social Influencers of Health Screening 08/12/2023 Depression Screening 07/18/2024 Influenza Vaccine (#1) 2025 Colorectal Cancer Screening: Colonoscopy 07/05/2033 RSV Immunization Adult Patie nts (1 - 1-dose 75+ series) 2042 HIB [...] patient's age to complete this topic Insurance Care Teams Oracle Etl Developer Relationship Specialty Start Date End Date Bonnie Adams MD [address] [place] [id number] PCP - General 11/02/22
[2025-04-19 18:08] LABS: Baso%MD 0.9 %; Eos%MD 21.9 %; Hematocrit 37.7 % (42.0-52.0); Hemoglobin 12.5 g/dl (14.0-18.0); IG%MD 0.2 %; Lymph%MD 20.0 %; Mean Corpuscular HGB Conc 33.2 g/dl (31.0-36.0); Mean Corpuscular Hemoglobin 28.0 pg (27.0-33.0); Mean Corpuscular Volume 84.3 fL (80.0-98.0); Mono%MD 6.2 %; NRBC Abs Auto 0.000 X10*3/uL (0.0-0.012); NRBC Pct Auto 0.0 /100WBC (0.0-0.2); Neut%MD 50.8 %; Platelet Count 295 X10*3/uL (160-400); Red Blood Count 4.47 X10*6/uL (4.60-5.80); WBCANC 13.2 X10*3/uL; White Blood Count 13.2 X10*3/uL (4.8-10.8)
[2025-04-19 18:18] LABS: Aspartate Amino Transferase 33 U/L (5-37); Estimated Glomerular Filt Rate > 60
[2025-04-19 21:36] LABS: Band Neutrophils Percent 3 % (3-5); Basophils Abs Manual 0.1 X10*3/uL (0.0-0.2); Basophils Percent Manual 1 % (0-2); Eosinophils Absolute Manual 2.6 X10*3/uL (0.0-0.4); Eosinophils Percent Manual 20 % (0-4); Lymphocytes Absolute Manual 2.1 X10*3/uL (1.2-4.9); Lymphocytes Percent Manual 16 % (20-40); Monocytes Absolute Manual 1.2 X10*3/uL (0.1-1.2); Monocytes Percent Manual 9 % (2-11); Neutrophils Absolute Manual 7.1 X10*3/uL (2.0-8.3); Neutrophils Percent Manual 51 % (45-73)
[2025-04-19 21:37] LABS: RBC Morphology NORMAL
[2025-04-24 16:58] LABS: Vitamin D 25-OH, D2 <4 ng/mL; Vitamin D 25-OH, D3 28 ng/mL; Vitamin D 25-OH, Total 28 ng/mL (30-100)
== END 2025-04-19 15:05 | disposition home or self-care (01) ==
LOC: HO.HKASLDS 15:04
PROVIDERS: Visit Provider Internal Medicine Rheumatology
DX: D89.89 Other specified disorders involving the immune mechanism, not elsewhere classified (principal); Z79.899 Other long term (current) drug therapy
CPT/HCPCS: 36415; 82306; 82565; 84450; 85007; 85027; 85652; 86140